=== PATIENT | male | born 1965 | race Native Hawaiian/Other Pacific Islander ===

== ENCOUNTER 2021-09-07 09:41 | Inpatient (IN) | payer OTHER ==
[~2021-09-07] VITALS: Ht 181.6 cm; Wt 150.9 kg
[2021-09-07 10:36] LABS: Basophils # (auto) 0 10 ^3/uL (0-0.2); Lymphocytes # (auto) 0.6 10 ^3/uL (0.4-5.4); Mean Corpuscular Volume 84.3 fL (80.0-100.0)
[2021-09-07 10:41] LABS: Basophils % (auto) 0.1 % (0.0-2.0); Eosinophils # (auto) 0.2 10 ^3/uL (0-0.8); Eosinophils % (auto) 1.4 % (0.0-7.0); Hematocrit 51.6 % (41.0-53.0); Hemoglobin 16.8 g/dL (13.5-17.5); Mean Corpuscular Hemoglobin 27.4 pg (28.0-32.0); Mean Corpuscular Hgb Conc. 32.5 g/dL (32.0-36.0); Monocytes # (auto) 0.1 10 ^3/uL (0-1.3); Monocytes % (auto) 0.5 % (0.0-12.0); Neutrophils # (auto) 11.3 10 ^3/uL (1.6-8.6); Nucleated Red Blood Cells % 0.2 %; Red Blood Cells 6.13 10^6/uL (4.5-5.90); White Blood Cell 12.1 10^3/uL (4.4-10.8)
[2021-09-07 10:55] LABS: Albumin 2.6 g/dL (3.4-5.0); Potassium 4.2 mmol/L (3.5-5.1)
[2021-09-07 11:01] LABS: BUN/Creatinine Ratio 15.6; Bilirubin, Total 0.9 mg/dL (0.2-1.0); Total Protein 7.9 g/dL (6.4-8.2)
[2021-09-07] MEDS ORDERED: methylPREDNISolone SOD SUCC 125 MG/2 ML VL IV ONE (11:15)
[2021-09-07] MEDS ORDERED: ACETAMINOPHEN 500 MG TAB PO ONE (12:43)
[2021-09-07] MEDS ORDERED: MORPHINE SULFATE INJECTION 2 MG/ML SYRG IV PRN ×3 (12:45→13:45)
[2021-09-07] MEDS ORDERED: AZITHROMYCIN 500MG/ 250ML 250 ML IV ONE (12:45)
[2021-09-07] MEDS ORDERED: APIXABAN 5 MG TAB PO ONE (12:45)
[2021-09-07] MEDS ORDERED: NITROGLYCERIN 0.4 MG SL TAB SL PRN ×2 (12:45→13:45)
[2021-09-07] MEDS ORDERED: cefTRIAXone 1GM/50ML D5W 50 ML IV ONE (12:45)
[2021-09-07] MEDS ORDERED: ACETAMINOPHEN 325 MG TAB PO ONE (12:45)
[2021-09-07] MEDS ORDERED: LORazepam 0.5 MG TAB PO PRN (13:45)
[2021-09-07] MEDS ORDERED: ACETAMINOPHEN 325 MG TAB PO PRN (13:45)
[2021-09-07] MEDS ORDERED: HYDROcodone-ACET 5/325MG TAB PO PRN (13:45)
[2021-09-07] MEDS ORDERED: ALUM & MAG HYDROX-SIMETH LIQ(MAALOX) 30 ML PO PRN (13:45)
[2021-09-07] MEDS ORDERED: METOCLOPRAMIDE HCL 5MG/ml INJ 2ml VIAL IV PRN (13:45)
[2021-09-07] MEDS ORDERED: DOCUSATE SOD 100 MG CAP PO PRN (13:45)
[2021-09-07] MEDS ORDERED: ACETAMINOPHEN 500 MG TAB PO PRN (13:45)
[2021-09-07] MEDS ORDERED: REMDESIVIR PER PHARMACY 0 ML IV SCH (13:45)
[2021-09-07] MEDS ORDERED: FUROSEMIDE 100 MG/10ML VIAL IV ONE (14:00)
[2021-09-07] MEDS ORDERED: hydrALAZINE HCL 20 MG/ML VL IV PRN (14:00)
[2021-09-07] MEDS ORDERED: FAMOTIDINE (10MG/ML) 2ML VL IV ONE (14:00)
[2021-09-07] MEDS ORDERED: guaiFENesin-CODEINE Liq 5 ML UD PO PRN (14:15)
[2021-09-07 14:47] LABS: Albumin 2.5 g/dL (3.4-5.0); Calcium 8.7 mg/dL (8.5-10.1); Magnesium 3.1 mg/dL (1.6-2.6); Potassium 4.4 mmol/L (3.5-5.1)
[2021-09-07 14:54] LABS: Cholesterol 172 mg/dL (< 200)
[2021-09-07 14:56] LABS: Bilirubin, Total 1.1 mg/dL (0.2-1.0); CRP High Sensitivity 5.22 mg/dL (< 0.3); Total Protein 7.5 g/dL (6.4-8.2)
[2021-09-07 14:57] LABS: HDL Cholesterol 33 mg/dL (40-59); LDL Cholesterol 120 mg/dL (< 100); Triglycerides 129 mg/dL (< 150)
[2021-09-07 15:09] LABS: Lactic Acid w/Reflex 2.1 mmol/L (0.4-2.0)
[2021-09-07 15:42] LABS: Thyroid Stimulating Hormone 1.25 uIU/mL (0.358-3.74)
[2021-09-07] MEDS: IVERMECTIN 3 MG TAB PO SCH (16:00)
[2021-09-07 17:32] LABS: Urine WBC None Seen /hpf (0 - 3)
[2021-09-07 17:49] LABS: Urine Bacteria NONE SEEN /hpf (None Seen); Urine Blood Negative /uL (Negative); Urine Specific Gravity 1.005 (1.001-1.035)
[2021-09-07 17:58] LABS: Alcohol, Urine < 3.0 mg/dL (0-10); Amphetamine Screen, Urine NEGATIVE (NEGATIVE); Barbiturate Scree,Urine NEGATIVE (NEGATIVE); Benzodiazephine Screen, Urine NEGATIVE (NEGATIVE); Cannabinoid Screen, Urine NEGATIVE (NEGATIVE); Cocaine Screen, Urine NEGATIVE (NEGATIVE); Opiate Scree,Urine NEGATIVE (NEGATIVE); Phencyclidine Screen, Urine NEGATIVE (NEGATIVE)
[2021-09-07] MEDS: FUROSEMIDE 40 MG/4 ML VIAL IV SCH (18:50)
[2021-09-07] MEDS: FAMOTIDINE (10MG/ML) 2ML VL IV SCH (22:55)
[2021-09-07] MEDS: APIXABAN 5 MG TAB PO SCH (22:55)
[2021-09-07] MEDS: ATORVASTATIN 20 MG TAB PO SCH (22:56)
[2021-09-07 23:40] VITALS: BP 118/75
[2021-09-08] MEDS: DOXYCYCLINE 100MG/250ML 250 ML IV SCH ×2 (00:24→09:52)
[2021-09-08 00:48] LABS: Basophils # (auto) 0 10 ^3/uL (0-0.2); Basophils % (auto) 0.5 % (0.0-2.0); Eosinophils # (auto) 0 10 ^3/uL (0-0.8); Eosinophils % (auto) 0.1 % (0.0-7.0); Hematocrit 50.1 % (41.0-53.0); Hemoglobin 16.5 g/dL (13.5-17.5); Lymphocytes # (auto) 0.5 10 ^3/uL (0.4-5.4); Lymphocytes % (auto) 4.9 % (10.0-50.0); Mean Corpuscular Hemoglobin 27.7 pg (28.0-32.0); Mean Corpuscular Hgb Conc. 32.9 g/dL (32.0-36.0); Monocytes # (auto) 0.2 10 ^3/uL (0-1.3); Monocytes % (auto) 2.6 % (0.0-12.0); Neutrophils # (auto) 8.7 10 ^3/uL (1.6-8.6); Neutrophils % (auto) 91.9 % (37.0-80.0); Nucleated Red Blood Cells % 0.1 %; Red Blood Cells 5.97 10^6/uL (4.5-5.90); Red Cell Distribution Width 14.2 % (11.8-14.3); White Blood Cell 9.4 10^3/uL (4.4-10.8)
[2021-09-08 05:15] VITALS: BP 128/84
[2021-09-08] MEDS: FUROSEMIDE 40 MG/4 ML VIAL IV SCH ×2 (05:49→18:18)
[2021-09-08] MEDS: BUDESONIDE (INHALATION) 180 MCG IH IN SCH ×2 (07:40→21:22)
[2021-09-08 08:23] LABS: Basophils # (auto) 0 10 ^3/uL (0-0.2); Basophils % (auto) 0.2 % (0.0-2.0); Eosinophils # (auto) 0 10 ^3/uL (0-0.8); Hematocrit 50.5 % (41.0-53.0); Hemoglobin 17.2 g/dL (13.5-17.5); Lymphocytes # (auto) 0.6 10 ^3/uL (0.4-5.4); Lymphocytes % (auto) 5.5 % (10.0-50.0); Mean Corpuscular Hemoglobin 28.5 pg (28.0-32.0); Mean Corpuscular Volume 83.6 fL (80.0-100.0); Monocytes # (auto) 0.5 10 ^3/uL (0-1.3); Monocytes % (auto) 4.6 % (0.0-12.0); Neutrophils # (auto) 9.3 10 ^3/uL (1.6-8.6); Neutrophils % (auto) 89.7 % (37.0-80.0); Nucleated Red Blood Cells % 0.3 %; Red Blood Cells 6.03 10^6/uL (4.5-5.90); Red Cell Distribution Width 14.1 % (11.8-14.3); White Blood Cell 10.4 10^3/uL (4.4-10.8)
[2021-09-08 08:40] LABS: INR 1.27 (0.9-1.15); Partial Thromboplastin Time 32.5 sec (23.6-33.0)
[2021-09-08 09:00] VITALS: BP 115/82
[2021-09-08 09:25] LABS: Albumin 2.7 g/dL (3.4-5.0); BUN/Creatinine Ratio 15.2; Bilirubin, Total 0.8 mg/dL (0.2-1.0); Calcium 9.2 mg/dL (8.5-10.1); Magnesium 3.6 mg/dL (1.6-2.6); Phosphorus 5.2 mg/dL (2.5-4.90); Total Protein 8.4 g/dL (6.4-8.2)
[2021-09-08] MEDS: ASPirin 81 mg TAB PO SCH (09:52)
[2021-09-08] MEDS: FAMOTIDINE (10MG/ML) 2ML VL IV SCH ×2 (09:52→21:57)
[2021-09-08] MEDS: DexAMETHasone SOD PHOS 10MG/1ML VIAL INJ IV SCH (09:52)
[2021-09-08] MEDS: CHOLECALCIFEROL (VITD3) 2,000 UNIT CAP/TAB PO SCH (09:53)
[2021-09-08] MEDS: ASCORBIC ACID 1,000 MG TAB PO SCH (09:53)
[2021-09-08] MEDS: IVERMECTIN 3 MG TAB PO SCH (09:53)
[2021-09-08] MEDS: APIXABAN 5 MG TAB PO SCH ×2 (09:53→21:57)
[2021-09-08] MEDS: ZINC SULFATE 220mg CAP or TAB PO SCH (09:53)
[2021-09-08] MEDS: ALBUTEROL SULF HFA 90MCG INH 200DOSE IN PRN (11:14)
[2021-09-08] MEDS ORDERED: REMDESIVIR 200 MG in NS 210ml LOADING DOSE ADULT IV ONE (12:00)
[2021-09-08 13:00] VITALS: BP 115/73
[2021-09-08 17:00] VITALS: BP 124/88
[2021-09-08] MEDS ORDERED: VANCOMYCIN PER PHARMACY 0 MG IV SCH (19:15)
[2021-09-08] MEDS ORDERED: PIPERACILLIN-TAZOB 3.375GM 100 ML IV ONE (19:15)
[2021-09-08 20:01] LABS: Magnesium 2.5 mg/dL (1.6-2.6); Phosphorus 4.9 mg/dL (2.5-4.90)
[2021-09-08] MEDS ORDERED: VANCOMYCIN 1GM/250ML 250 ML IV ONE (21:00)
[2021-09-08] MEDS: ATORVASTATIN 20 MG TAB PO SCH (21:57)
[2021-09-08 22:00] VITALS: BP 97/60
[2021-09-09] MEDS: PIPERACILLIN-TAZOB 3.375GM 100 ML IV SCH ×5 (00:14→23:30)
[2021-09-09 05:17] VITALS: BP 116/68
[2021-09-09] MEDS: FUROSEMIDE 40 MG/4 ML VIAL IV SCH ×2 (06:52→17:27)
[2021-09-09 07:27] LABS: Basophils # (auto) 0 10 ^3/uL (0-0.2); Basophils % (auto) 0.2 % (0.0-2.0); Eosinophils # (auto) 0.1 10 ^3/uL (0-0.8); Eosinophils % (auto) 0.6 % (0.0-7.0); Hematocrit 50.3 % (41.0-53.0); Hemoglobin 16.7 g/dL (13.5-17.5); Lymphocytes # (auto) 0.5 10 ^3/uL (0.4-5.4); Lymphocytes % (auto) 4.6 % (10.0-50.0); Mean Corpuscular Hgb Conc. 33.1 g/dL (32.0-36.0); Mean Corpuscular Volume 84.6 fL (80.0-100.0); Monocytes # (auto) 0.1 10 ^3/uL (0-1.3); Monocytes % (auto) 0.8 % (0.0-12.0); Neutrophils # (auto) 9.9 10 ^3/uL (1.6-8.6); Neutrophils % (auto) 93.8 % (37.0-80.0); Nucleated Red Blood Cells % 0.3 %; Red Blood Cells 5.95 10^6/uL (4.5-5.90); Red Cell Distribution Width 13.8 % (11.8-14.3); White Blood Cell 10.6 10^3/uL (4.4-10.8)
[2021-09-09 07:51] LABS: Albumin 2.5 g/dL (3.4-5.0); BUN/Creatinine Ratio 22.2; Total Protein 7.6 g/dL (6.4-8.2)
[2021-09-09 07:57] LABS: INR 1.2 (0.9-1.15); Partial Thromboplastin Time 27.6 sec (23.6-33.0)
[2021-09-09 09:00] VITALS: BP 108/81
[2021-09-09] MEDS: FAMOTIDINE (10MG/ML) 2ML VL IV SCH ×2 (09:30→22:14)
[2021-09-09] MEDS: DexAMETHasone SOD PHOS 10MG/1ML VIAL INJ IV SCH (09:30)
[2021-09-09] MEDS: IVERMECTIN 3 MG TAB PO SCH (09:31)
[2021-09-09] MEDS: APIXABAN 5 MG TAB PO SCH ×2 (09:31→22:14)
[2021-09-09] MEDS: ASCORBIC ACID 1,000 MG TAB PO SCH (09:31)
[2021-09-09] MEDS: ASPirin 81 mg TAB PO SCH (09:31)
[2021-09-09] MEDS: ZINC SULFATE 220mg CAP or TAB PO SCH (09:31)
[2021-09-09] MEDS: CHOLECALCIFEROL (VITD3) 2,000 UNIT CAP/TAB PO SCH (09:31)
[2021-09-09] MEDS: BUDESONIDE (INHALATION) 180 MCG IH IN SCH ×2 (09:52→21:03)
[2021-09-09 13:00] VITALS: BP 104/60
[2021-09-09] MEDS: REMDESIVIR 100mg 100 MG in SODIUM CHL 0.9% 230 ML IV SCH (15:00)
[2021-09-09] MEDS: ALBUTEROL SULF HFA 90MCG INH 200DOSE IN PRN (15:08)
[2021-09-09 17:44] VITALS: BP 130/66
[2021-09-09] MEDS ORDERED: VANCOMYCIN 1GM/250ML 250 ML IV SCH (20:00)
[2021-09-09 22:00] VITALS: BP 91/48
[2021-09-09] MEDS: ATORVASTATIN 20 MG TAB PO SCH (22:17)
[2021-09-10 05:00] VITALS: BP 119/67
[2021-09-10] MEDS: PIPERACILLIN-TAZOB 3.375GM 100 ML IV SCH (05:42)
[2021-09-10] MEDS: FUROSEMIDE 40 MG/4 ML VIAL IV SCH ×2 (05:42→18:15)
[2021-09-10] MEDS: BUDESONIDE (INHALATION) 180 MCG IH IN SCH ×2 (06:44→19:26)
[2021-09-10] MEDS: ALBUTEROL SULF HFA 90MCG INH 200DOSE IN PRN ×2 (06:44→21:02)
[2021-09-10 07:48] LABS: INR 1.28 (0.9-1.15); Partial Thromboplastin Time 29.3 sec (23.6-33.0)
[2021-09-10 08:08] LABS: Potassium 3.8 mmol/L (3.5-5.1)
[2021-09-10 08:15] LABS: Basophils # (auto) 0 10 ^3/uL (0-0.2); Basophils % (auto) 0.1 % (0.0-2.0); Eosinophils # (auto) 0.1 10 ^3/uL (0-0.8); Hematocrit 50.3 % (41.0-53.0); Hemoglobin 16.8 g/dL (13.5-17.5); Lymphocytes # (auto) 0.8 10 ^3/uL (0.4-5.4); Lymphocytes % (auto) 6.7 % (10.0-50.0); Mean Corpuscular Hgb Conc. 33.3 g/dL (32.0-36.0); Mean Corpuscular Volume 84.1 fL (80.0-100.0); Monocytes # (auto) 0.3 10 ^3/uL (0-1.3); Monocytes % (auto) 2.9 % (0.0-12.0); Neutrophils # (auto) 10.6 10 ^3/uL (1.6-8.6); Neutrophils % (auto) 89.3 % (37.0-80.0); Nucleated Red Blood Cells % 0.1 %; Red Blood Cells 5.98 10^6/uL (4.5-5.90); Red Cell Distribution Width 13.8 % (11.8-14.3); White Blood Cell 11.8 10^3/uL (4.4-10.8)
[2021-09-10 08:17] LABS: Albumin 2.5 g/dL (3.4-5.0); BUN/Creatinine Ratio 20.4; Calcium 8.8 mg/dL (8.5-10.1); Magnesium 3.5 mg/dL (1.6-2.6); Phosphorus 4.1 mg/dL (2.5-4.90); Total Protein 7.8 g/dL (6.4-8.2)
[2021-09-10] MEDS: ZINC SULFATE 220mg CAP or TAB PO SCH (08:28)
[2021-09-10] MEDS: ASPirin 81 mg TAB PO SCH (08:28)
[2021-09-10] MEDS: ASCORBIC ACID 1,000 MG TAB PO SCH (08:29)
[2021-09-10] MEDS: FAMOTIDINE (10MG/ML) 2ML VL IV SCH ×2 (08:29→21:24)
[2021-09-10] MEDS: APIXABAN 5 MG TAB PO SCH ×2 (08:29→21:24)
[2021-09-10] MEDS: CHOLECALCIFEROL (VITD3) 2,000 UNIT CAP/TAB PO SCH (08:29)
[2021-09-10] MEDS: IVERMECTIN 3 MG TAB PO SCH (08:29)
[2021-09-10] MEDS: DexAMETHasone SOD PHOS 10MG/1ML VIAL INJ IV SCH (08:29)
[2021-09-10 08:36] VITALS: BP 112/68
[2021-09-10] MEDS: CEFTRIAXONE SODIUM 2 GM in D5W 5% 50 ML IV SCH (10:00)
[2021-09-10 12:34] VITALS: BP 113/66
[2021-09-10 14:15] LABS: Hepatitis A Ab IgM Negative; Hepatitis B Core IgM Negative
[2021-09-10 14:16] LABS: Hepatitis C Antibody Negative (Negative)
[2021-09-10] MEDS: REMDESIVIR 100mg 100 MG in SODIUM CHL 0.9% 230 ML IV SCH (15:55)
[2021-09-10 16:55] VITALS: BP 113/76
[2021-09-10] MEDS: ATORVASTATIN 20 MG TAB PO SCH (21:24)
[2021-09-10] MEDS: CLINDAMYCIN 600MG IV 50 ML IV SCH (21:24)
[2021-09-10 22:00] VITALS: BP 124/84
[2021-09-11] MEDS: CLINDAMYCIN 600MG IV 50 ML IV SCH ×3 (05:15→21:43)
[2021-09-11] MEDS: BUDESONIDE (INHALATION) 180 MCG IH IN SCH ×2 (05:51→19:56)
[2021-09-11] MEDS: ALBUTEROL SULF HFA 90MCG INH 200DOSE IN PRN ×2 (05:51→19:56)
[2021-09-11 07:01] LABS: Basophils # (auto) 0 10 ^3/uL (0-0.2); Basophils % (auto) 0.3 % (0.0-2.0); Eosinophils # (auto) 0.1 10 ^3/uL (0-0.8); Hematocrit 48.2 % (41.0-53.0); Lymphocytes # (auto) 0.8 10 ^3/uL (0.4-5.4); Lymphocytes % (auto) 6.8 % (10.0-50.0); Mean Corpuscular Hemoglobin 27.8 pg (28.0-32.0); Mean Corpuscular Hgb Conc. 33.2 g/dL (32.0-36.0); Mean Corpuscular Volume 83.7 fL (80.0-100.0); Monocytes # (auto) 0.7 10 ^3/uL (0-1.3); Monocytes % (auto) 5.9 % (0.0-12.0); Neutrophils # (auto) 10.1 10 ^3/uL (1.6-8.6); Red Blood Cells 5.75 10^6/uL (4.5-5.90); Red Cell Distribution Width 14.3 % (11.8-14.3); White Blood Cell 11.8 10^3/uL (4.4-10.8)
[2021-09-11 07:35] LABS: Potassium 3.7 mmol/L (3.5-5.1)
[2021-09-11 08:04] LABS: Albumin 2.5 g/dL (3.4-5.0); BUN/Creatinine Ratio 25.3; Bilirubin, Total 0.6 mg/dL (0.2-1.0); Total Protein 7.5 g/dL (6.4-8.2)
[2021-09-11 09:00] VITALS: BP 113/65
[2021-09-11] MEDS: FAMOTIDINE (10MG/ML) 2ML VL IV SCH (09:45)
[2021-09-11] MEDS: CEFTRIAXONE SODIUM 2 GM in D5W 5% 50 ML IV SCH (09:45)
[2021-09-11] MEDS: ZINC SULFATE 220mg CAP or TAB PO SCH (09:45)
[2021-09-11] MEDS: ASPirin 81 mg TAB PO SCH (09:45)
[2021-09-11] MEDS: DexAMETHasone SOD PHOS 10MG/1ML VIAL INJ IV SCH (09:45)
[2021-09-11] MEDS: ASCORBIC ACID 1,000 MG TAB PO SCH (09:46)
[2021-09-11] MEDS: CHOLECALCIFEROL (VITD3) 2,000 UNIT CAP/TAB PO SCH (09:46)
[2021-09-11] MEDS: IVERMECTIN 3 MG TAB PO SCH (09:46)
[2021-09-11] MEDS: APIXABAN 5 MG TAB PO SCH ×2 (09:46→21:44)
[2021-09-11 13:00] VITALS: BP 129/79
[2021-09-11] MEDS: REMDESIVIR 100mg 100 MG in SODIUM CHL 0.9% 230 ML IV SCH (16:03)
[2021-09-11 17:00] VITALS: BP 155/90
[2021-09-11 20:00] VITALS: BP 119/78
[2021-09-11 21:00] VITALS: BP 119/78
[2021-09-11] MEDS: ATORVASTATIN 20 MG TAB PO SCH (21:44)
[2021-09-12] MEDS: CLINDAMYCIN 600MG IV 50 ML IV SCH ×3 (05:12→21:23)
[2021-09-12 06:38] LABS: Potassium 4.6 mmol/L (3.5-5.1)
[2021-09-12 06:45] LABS: Albumin 2.4 g/dL (3.4-5.0); BUN/Creatinine Ratio 23.6; Calcium 8.9 mg/dL (8.5-10.1)
[2021-09-12 06:47] LABS: Bilirubin, Total 0.6 mg/dL (0.2-1.0); Total Protein 6.9 g/dL (6.4-8.2)
[2021-09-12] MEDS: ALBUTEROL SULF HFA 90MCG INH 200DOSE IN PRN ×2 (07:05→21:45)
[2021-09-12] MEDS: BUDESONIDE (INHALATION) 180 MCG IH IN SCH ×2 (07:06→21:45)
[2021-09-12 09:00] VITALS: BP 112/76
[2021-09-12] MEDS: CEFTRIAXONE SODIUM 2 GM in D5W 5% 50 ML IV SCH (09:16)
[2021-09-12] MEDS: DexAMETHasone SOD PHOS 10MG/1ML VIAL INJ IV SCH (09:16)
[2021-09-12] MEDS: ASPirin 81 mg TAB PO SCH (09:17)
[2021-09-12] MEDS: ZINC SULFATE 220mg CAP or TAB PO SCH (09:17)
[2021-09-12] MEDS: ASCORBIC ACID 1,000 MG TAB PO SCH (09:17)
[2021-09-12] MEDS: APIXABAN 5 MG TAB PO SCH ×2 (09:17→21:23)
[2021-09-12] MEDS: CHOLECALCIFEROL (VITD3) 2,000 UNIT CAP/TAB PO SCH (09:18)
[2021-09-12 13:00] VITALS: BP 104/74
[2021-09-12] MEDS: REMDESIVIR 100mg 100 MG in SODIUM CHL 0.9% 230 ML IV SCH (14:45)
[2021-09-12 17:00] VITALS: BP 128/82
[2021-09-12] MEDS: ATORVASTATIN 20 MG TAB PO SCH (21:24)
[2021-09-12 22:00] VITALS: BP 121/81
[2021-09-13 05:00] VITALS: BP 109/67
[2021-09-13] MEDS: CLINDAMYCIN 600MG IV 50 ML IV SCH ×2 (05:41→13:45)
[2021-09-13] MEDS: ALBUTEROL SULF HFA 90MCG INH 200DOSE IN PRN ×2 (05:53→21:12)
[2021-09-13] MEDS: BUDESONIDE (INHALATION) 180 MCG IH IN SCH ×2 (05:53→19:34)
[2021-09-13 07:40] LABS: Potassium 4.6 mmol/L (3.5-5.1)
[2021-09-13 07:50] VITALS: BP 105/88
[2021-09-13 08:04] LABS: Albumin 2.5 g/dL (3.4-5.0); BUN/Creatinine Ratio 24.8; Calcium 9.3 mg/dL (8.5-10.1)
[2021-09-13 08:07] LABS: Bilirubin, Total 0.6 mg/dL (0.2-1.0); Total Protein 7.9 g/dL (6.4-8.2)
[2021-09-13] MEDS: FLORASTOR (S. BOULARDII) 250 MG CAP PO SCH (09:33)
[2021-09-13] MEDS: DexAMETHasone SOD PHOS 10MG/1ML VIAL INJ IV SCH (09:33)
[2021-09-13] MEDS: ASPirin 81 mg TAB PO SCH (09:34)
[2021-09-13] MEDS: ASCORBIC ACID 1,000 MG TAB PO SCH (09:34)
[2021-09-13] MEDS: ZINC SULFATE 220mg CAP or TAB PO SCH (09:34)
[2021-09-13] MEDS: APIXABAN 5 MG TAB PO SCH ×2 (09:34→21:55)
[2021-09-13] MEDS: CHOLECALCIFEROL (VITD3) 2,000 UNIT CAP/TAB PO SCH (09:34)
[2021-09-13] MEDS: CEFTRIAXONE SODIUM 2 GM in D5W 5% 50 ML IV SCH (09:56)
[2021-09-13 13:00] VITALS: BP 114/64
[2021-09-13 16:35] VITALS: BP 133/84
[2021-09-13] MEDS: ATORVASTATIN 20 MG TAB PO SCH (21:55)
[2021-09-13 22:00] VITALS: BP 114/69
[2021-09-13] MEDS: AMOXICILLIN/CLAVUL 875 MG TAB PO SCH (22:19)
[2021-09-14 05:00] VITALS: BP 122/79
[2021-09-14] MEDS: ALBUTEROL SULF HFA 90MCG INH 200DOSE IN PRN ×2 (06:54→21:49)
[2021-09-14] MEDS: BUDESONIDE (INHALATION) 180 MCG IH IN SCH ×2 (06:54→21:49)
[2021-09-14 09:00] VITALS: BP 102/72
[2021-09-14] MEDS: FLORASTOR (S. BOULARDII) 250 MG CAP PO SCH (10:08)
[2021-09-14] MEDS: ASCORBIC ACID 1,000 MG TAB PO SCH (10:08)
[2021-09-14] MEDS: AMOXICILLIN/CLAVUL 875 MG TAB PO SCH ×2 (10:09→22:24)
[2021-09-14] MEDS: APIXABAN 5 MG TAB PO SCH ×2 (10:09→22:24)
[2021-09-14] MEDS: CHOLECALCIFEROL (VITD3) 2,000 UNIT CAP/TAB PO SCH (10:10)
[2021-09-14] MEDS: ZINC SULFATE 220mg CAP or TAB PO SCH (10:10)
[2021-09-14] MEDS: DexAMETHasone SOD PHOS 10MG/1ML VIAL INJ IV SCH (10:10)
[2021-09-14] MEDS: ASPirin 81 mg TAB PO SCH (10:10)
[2021-09-14 13:00] VITALS: BP 107/78
[2021-09-14] MEDS ORDERED: FLUTICASONE PROP NASAL SPR 0.05 % (50MCG) 16GM EACHNOSTRI ONE (15:00)
[2021-09-14] MEDS: FLUTICASONE PROP NASAL SPR 0.05 % (50MCG) 16GM EACHNOSTRI SCH ×2 (16:12→22:24)
[2021-09-14 17:01] VITALS: BP 112/68
[2021-09-14 22:00] VITALS: BP 140/62
[2021-09-14] MEDS: ATORVASTATIN 20 MG TAB PO SCH (22:24)
[2021-09-15 05:00] VITALS: BP 123/80
[2021-09-15] MEDS: BUDESONIDE (INHALATION) 180 MCG IH IN SCH ×2 (06:03→19:56)
[2021-09-15] MEDS: ALBUTEROL SULF HFA 90MCG INH 200DOSE IN PRN ×2 (06:03→19:56)
[2021-09-15 07:18] LABS: Potassium 4.5 mmol/L (3.5-5.1)
[2021-09-15 07:22] LABS: Albumin 2.5 g/dL (3.4-5.0); BUN/Creatinine Ratio 24.6
[2021-09-15 07:24] LABS: Bilirubin, Total 0.7 mg/dL (0.2-1.0); Total Protein 7.5 g/dL (6.4-8.2)
[2021-09-15 07:27] LABS: Hematocrit 49.4 % (41.0-53.0); Hemoglobin 16.5 g/dL (13.5-17.5); Mean Corpuscular Hemoglobin 28.3 pg (28.0-32.0); Mean Corpuscular Hgb Conc. 33.3 g/dL (32.0-36.0); Mean Corpuscular Volume 85.1 fL (80.0-100.0); Red Blood Cells 5.81 10^6/uL (4.5-5.90); Red Cell Distribution Width 14.1 % (11.8-14.3)
[2021-09-15 08:05] LABS: Basophils % (manual) 0 (0.0-2.0); Blast Cells 0; Metamyelocytes % 0; Promyelocytes % 0; Reactive Lymphocytes 0
[2021-09-15 09:00] VITALS: BP 122/74
[2021-09-15] MEDS: FLUTICASONE PROP NASAL SPR 0.05 % (50MCG) 16GM EACHNOSTRI SCH ×2 (09:05→21:09)
[2021-09-15] MEDS: ASPirin 81 mg TAB PO SCH (09:06)
[2021-09-15] MEDS: DexAMETHasone SOD PHOS 10MG/1ML VIAL INJ IV SCH (09:06)
[2021-09-15] MEDS: ZINC SULFATE 220mg CAP or TAB PO SCH (09:06)
[2021-09-15] MEDS: APIXABAN 5 MG TAB PO SCH ×2 (09:06→21:09)
[2021-09-15] MEDS: FLORASTOR (S. BOULARDII) 250 MG CAP PO SCH (09:06)
[2021-09-15] MEDS: AMOXICILLIN/CLAVUL 875 MG TAB PO SCH ×2 (09:06→21:09)
[2021-09-15] MEDS: CHOLECALCIFEROL (VITD3) 2,000 UNIT CAP/TAB PO SCH (09:07)
[2021-09-15] MEDS: ASCORBIC ACID 1,000 MG TAB PO SCH (09:07)
[2021-09-15 11:31] LABS: Band Neutrophils % (manual) 1; Eosinophils % (manual) 1 (0-7); Lymphocytes % (manual) 7 (10.0-50.0); Monocytes % (manual) 4 (0-12); Myelocytes % 1
[2021-09-15 13:00] VITALS: BP 130/82
[2021-09-15 17:00] VITALS: BP 127/81
[2021-09-15] MEDS: ATORVASTATIN 20 MG TAB PO SCH (21:09)
[2021-09-15 22:00] VITALS: BP 121/83
[2021-09-16 05:00] VITALS: BP 138/97
[2021-09-16] MEDS: ALBUTEROL SULF HFA 90MCG INH 200DOSE IN PRN ×2 (07:26→21:07)
[2021-09-16] MEDS: BUDESONIDE (INHALATION) 180 MCG IH IN SCH ×2 (07:26→21:07)
[2021-09-16 08:04] LABS: Eosinophils # (auto) 0.1 10 ^3/uL (0-0.8); Eosinophils % (auto) 0.6 % (0.0-7.0); Lymphocytes # (auto) 1.7 10 ^3/uL (0.4-5.4); Mean Corpuscular Hemoglobin 27.9 pg (28.0-32.0); Mean Corpuscular Volume 84.7 fL (80.0-100.0); Monocytes # (auto) 1.1 10 ^3/uL (0-1.3); Nucleated Red Blood Cells % 0.1 %
[2021-09-16 08:05] LABS: Basophils # (auto) 0 10 ^3/uL (0-0.2); Basophils % (auto) 0.3 % (0.0-2.0); Hematocrit 50.7 % (41.0-53.0); Hemoglobin 16.7 g/dL (13.5-17.5); Lymphocytes % (auto) 12.1 % (10.0-50.0); Monocytes % (auto) 7.7 % (0.0-12.0); Neutrophils # (auto) 11.3 10 ^3/uL (1.6-8.6); Neutrophils % (auto) 79.3 % (37.0-80.0); Red Blood Cells 5.99 10^6/uL (4.5-5.90); Red Cell Distribution Width 14.3 % (11.8-14.3); White Blood Cell 14.2 10^3/uL (4.4-10.8)
[2021-09-16 08:12] LABS: Potassium 4.2 mmol/L (3.5-5.1)
[2021-09-16 08:21] LABS: Albumin 2.6 g/dL (3.4-5.0); BUN/Creatinine Ratio 23.1; Bilirubin, Total 0.6 mg/dL (0.2-1.0); Calcium 9.1 mg/dL (8.5-10.1); Total Protein 7.3 g/dL (6.4-8.2)
[2021-09-16] MEDS: DexAMETHasone SOD PHOS 10MG/1ML VIAL INJ IV SCH (08:45)
[2021-09-16] MEDS: ASPirin 81 mg TAB PO SCH (08:45)
[2021-09-16] MEDS: FLUTICASONE PROP NASAL SPR 0.05 % (50MCG) 16GM EACHNOSTRI SCH ×2 (08:45→21:56)
[2021-09-16] MEDS: FLORASTOR (S. BOULARDII) 250 MG CAP PO SCH (08:46)
[2021-09-16] MEDS: AMOXICILLIN/CLAVUL 875 MG TAB PO SCH ×2 (08:46→21:55)
[2021-09-16] MEDS: APIXABAN 5 MG TAB PO SCH ×2 (08:46→21:55)
[2021-09-16] MEDS: CHOLECALCIFEROL (VITD3) 2,000 UNIT CAP/TAB PO SCH (08:46)
[2021-09-16] MEDS: ZINC SULFATE 220mg CAP or TAB PO SCH (08:46)
[2021-09-16] MEDS: ASCORBIC ACID 1,000 MG TAB PO SCH (08:46)
[2021-09-16 09:45] VITALS: BP 132/81
[2021-09-16 13:00] VITALS: BP 129/79
[2021-09-16 16:18] VITALS: BP 116/75
[2021-09-16] MEDS: ATORVASTATIN 20 MG TAB PO SCH (21:56)
[2021-09-16 22:00] VITALS: BP 116/64
[2021-09-17 05:00] VITALS: BP 119/68
[2021-09-17 07:08] LABS: Basophils # (auto) 0.1 10 ^3/uL (0-0.2); Basophils % (auto) 0.4 % (0.0-2.0); Eosinophils # (auto) 0.1 10 ^3/uL (0-0.8); Eosinophils % (auto) 0.4 % (0.0-7.0); Hematocrit 49.1 % (41.0-53.0); Hemoglobin 16.4 g/dL (13.5-17.5); Lymphocytes # (auto) 1.5 10 ^3/uL (0.4-5.4); Lymphocytes % (auto) 10.4 % (10.0-50.0); Mean Corpuscular Hemoglobin 28.4 pg (28.0-32.0); Mean Corpuscular Hgb Conc. 33.5 g/dL (32.0-36.0); Mean Corpuscular Volume 84.8 fL (80.0-100.0); Monocytes % (auto) 7.2 % (0.0-12.0); Neutrophils # (auto) 11.8 10 ^3/uL (1.6-8.6); Neutrophils % (auto) 81.6 % (37.0-80.0); Nucleated Red Blood Cells % 0.1 %; Red Blood Cells 5.79 10^6/uL (4.5-5.90); Red Cell Distribution Width 14.1 % (11.8-14.3); White Blood Cell 14.5 10^3/uL (4.4-10.8)
[2021-09-17 07:13] LABS: Potassium 4.1 mmol/L (3.5-5.1)
[2021-09-17 07:20] LABS: Albumin 2.6 g/dL (3.4-5.0); BUN/Creatinine Ratio 24.3; Bilirubin, Total 0.6 mg/dL (0.2-1.0); Calcium 8.6 mg/dL (8.5-10.1); Total Protein 7.3 g/dL (6.4-8.2)
[2021-09-17 08:50] VITALS: BP 113/73
[2021-09-17] MEDS: DexAMETHasone SOD PHOS 10MG/1ML VIAL INJ IV SCH (09:49)
[2021-09-17] MEDS: FLUTICASONE PROP NASAL SPR 0.05 % (50MCG) 16GM EACHNOSTRI SCH (09:49)
[2021-09-17] MEDS: ASPirin 81 mg TAB PO SCH (09:49)
[2021-09-17] MEDS: AMOXICILLIN/CLAVUL 875 MG TAB PO SCH (09:50)
[2021-09-17] MEDS: APIXABAN 5 MG TAB PO SCH (09:50)
[2021-09-17] MEDS: ZINC SULFATE 220mg CAP or TAB PO SCH (09:50)
[2021-09-17] MEDS: ASCORBIC ACID 1,000 MG TAB PO SCH (09:51)
[2021-09-17] MEDS: CHOLECALCIFEROL (VITD3) 2,000 UNIT CAP/TAB PO SCH (09:51)
[2021-09-17] MEDS: FLORASTOR (S. BOULARDII) 250 MG CAP PO SCH (09:51)
[2021-09-17 13:00] VITALS: BP 122/84
[2021-09-17] MEDS ORDERED: CHOL1CAP47 PO (14:29)
[2021-09-17] MEDS ORDERED: RIVA10TA PO (14:29)
[2021-09-17] MEDS ORDERED: ALBUAER3 IN (14:29)
[2021-09-17] MEDS ORDERED: ZINC220T6 PO (14:29)
[2021-09-17] MEDS ORDERED: ASCO10003 PO (14:29)
[2021-09-17] MEDS ORDERED: AMOX-277 PO (14:41)
[2021-09-17 16:27] VITALS: BP 122/84
[2021-09-17 17:47] VITALS: BP 131/88
== END 2021-09-17 18:03 | disposition home or self-care (01) | DRG 177 ==
LOC: ER 09:41 → TELE 12:44 → TELE-WESTW 23:35
PROVIDERS: ADMIT Hospitalist; ATTEND Internal Medicine
PROC: XW033E5 Introduction of Remdesivir Anti-infective into Peripheral Vein, Percutaneous Approach, New Technology Group 5 (ICD-10-PCS; 2021-09-07)
PROC: B54NZZA Ultrasonography of Left Upper Extremity Veins, Guidance (ICD-10-PCS; principal; 2021-09-10)
PROC: 05HA33Z Insertion of Infusion Device into Left Brachial Vein, Percutaneous Approach (ICD-10-PCS; 2021-09-10)
DX: U07.1 COVID-19 (principal); J12.82 Pneumonia due to coronavirus disease 2019; J96.01 Acute respiratory failure with hypoxia; N17.0 Acute kidney failure with tubular necrosis; D68.59 Other primary thrombophilia; R78.81 Bacteremia; Z68.42 Body mass index [BMI] 45.0-49.9, adult; J98.11 Atelectasis; E66.01 Morbid (severe) obesity due to excess calories; E78.5 Hyperlipidemia, unspecified; E88.09 Other disorders of plasma-protein metabolism, not elsewhere classified; E88.81 Metabolic syndrome and other insulin resistance; N18.31 Chronic kidney disease, stage 3a; B95.8 Unspecified staphylococcus as the cause of diseases classified elsewhere; I12.9 Hypertensive chronic kidney disease with stage 1 through stage 4 chronic kidney disease, or unspecified chronic kidney disease; D89.839 Cytokine release syndrome, grade unspecified; R53.81 Other malaise; R74.01 Elevation of levels of liver transaminase levels
CPT/HCPCS: 36415; 36600; 71045; 76700; 80053; 80061; 80074; 80307; 81001; 82306; 82728; 82805; 83036; 83605; 83615; 83735; 83880; 83970; 84100; 84443; 84484; 84550; 85007; 85025; 85027; 85379; 85610; 85730; 86141; 87040; 87077; 87186; 87426; 93005; 93306; 93970; 94640; 96365; 96368; 96375; 99291; G0378; J0696; J1100; J2543; J3490; J7060

== ENCOUNTER 2022-04-24 21:26 | Emergency (ER) | payer OTHER ==
[~2022-04-24] VITALS: Ht 180.3 cm; Wt 145.0 kg
[~2022-04-24 21:26] MED LIST: ALBUAER3 IN; AMOX-277 PO; ASCO10003 PO; CHOL1CAP47 PO; RIVA10TA PO; ZINC220T6 PO
[2022-04-24 23:32] LABS: Urine Bacteria NONE SEEN /hpf (None Seen); Urine Blood 3+ /uL (Negative); Urine WBC 2763 /hpf (0 - 3); Urine WBC Clumps PRESENT /hpf (None Seen)
[2022-04-24 23:33] LABS: Urine Specific Gravity 1.024 (1.001-1.035)
[2022-04-24 23:42] LABS: Albumin 3.8 g/dL (3.4-5.0); BUN/Creatinine Ratio 11.1; Potassium 4.4 mmol/L (3.5-5.1)
[2022-04-24 23:44] LABS: Bilirubin, Total 0.9 mg/dL (0.2-1.0); Total Protein 8.2 g/dL (6.4-8.2)
[2022-04-24 23:49] LABS: Basophils # (auto) 0.1 10 ^3/uL (0-0.2); Basophils % (auto) 0.5 % (0.0-2.0); Eosinophils # (auto) 0.1 10 ^3/uL (0-0.8)
[2022-04-24 23:50] LABS: Eosinophils % (auto) 0.6 % (0.0-7.0); Hematocrit 54.9 % (41.0-53.0); Lymphocytes # (auto) 2.4 10 ^3/uL (0.4-5.4); Lymphocytes % (auto) 11.3 % (10.0-50.0); Mean Corpuscular Hemoglobin 27.6 pg (28.0-32.0); Mean Corpuscular Hgb Conc. 32.8 g/dL (32.0-36.0); Mean Corpuscular Volume 84.3 fL (80.0-100.0); Monocytes # (auto) 1.6 10 ^3/uL (0-1.3); Monocytes % (auto) 7.4 % (0.0-12.0); Neutrophils # (auto) 17.2 10 ^3/uL (1.6-8.6); Neutrophils % (auto) 80.2 % (37.0-80.0); Nucleated Red Blood Cells % 0.2 %; Red Blood Cells 6.51 10^6/uL (4.5-5.90); Red Cell Distribution Width 14.4 % (11.8-14.3); White Blood Cell 21.5 10^3/uL (4.4-10.8)
[2022-04-25 00:05] LABS: INR 0.97 (0.9-1.15); Partial Thromboplastin Time 29.5 sec (24.6-33.4)
[2022-04-25] MEDS ORDERED: ACETAMINOPHEN 325 MG TAB PO ONE (03:00)
[2022-04-25] MEDS ORDERED: SODIUM CHLORIDE 0.9% 1,000 ML IV ONE (03:15)
[2022-04-25 06:35] VITALS: BP 103/58
== END 2022-04-25 06:36 | disposition home or self-care (01) ==
LOC: ER 21:26
DX: K42.9 Umbilical hernia without obstruction or gangrene (principal); R31.9 Hematuria, unspecified; Z88.1 Allergy status to other antibiotic agents
CPT/HCPCS: 36415; 74176; 80053; 81001; 85025; 85610; 85730; 99285; J7030

== ENCOUNTER 2022-04-27 20:47 | Emergency (ER) | payer OTHER ==
[~2022-04-27] VITALS: Ht 180.3 cm; Wt 150.0 kg
[2022-04-27 21:24] VITALS: BP 117/67
[2022-04-28] MEDS ORDERED: CEPH-510 PO (02:38)
== END 2022-04-28 02:57 | disposition home or self-care (01) ==
LOC: ER 20:47
DX: N39.0 Urinary tract infection, site not specified (principal); R33.9 Retention of urine, unspecified; I10 Essential (primary) hypertension; Z87.442 Personal history of urinary calculi

== ENCOUNTER 2023-12-23 08:03 | Emergency (ER) | payer OTHER ==
[~2023-12-23] VITALS: Ht 180.3 cm; Wt 163.7 kg
[~2023-12-23 08:03] MED LIST changes: -AMOX-277 PO; +AMOX875T4 PO; +CEPH-510 PO
[2023-12-23] MEDS ORDERED: MELO7.5T7 PO (09:19)
[2023-12-23 09:24] VITALS: BP 144/91; PULSE 68; RESP 16; TEMP 97.3; O2SAT 94
== END 2023-12-23 09:45 | disposition home or self-care (01) ==
LOC: ER 08:03
DX: M19.011 Primary osteoarthritis, right shoulder (principal); Z87.442 Personal history of urinary calculi; Z79.899 Other long term (current) drug therapy
CPT/HCPCS: 73030

== ENCOUNTER 2024-09-05 08:45 | Inpatient (IN) | payer OTHER ==
[~2024-09-05] VITALS: Ht 175.3 cm; Wt 165.1 kg
[~2024-09-05 08:45] MED LIST changes: +CHOL500023 PO; +MELO7.5T7 PO; +METH-1181 PO
[2024-09-05 09:23] LABS: Basophils # (auto) 0 10 ^3/uL (0-0.2); Monocytes # (auto) 0.9 10 ^3/uL (0-1.3)
--- NOTE | 2024-09-05 09:24 | DVH ---
CHEST RADIOGRAPH Indication: cp Technique: Single frontal view of the chest was obtained COMPARISON: CHEST PORTABLE on DOS: 09/11/21 FINDINGS: Lines and Tubes: None Lungs: Low lung volumes with suggestion of mild superimposed hazy /interstitial opacities. Pleura: No effusion. No pneumothorax. Cardiomediastinal contours: Mild stable enlargement of the cardiac silhouette. Bones: Unremarkable IMPRESSION: Bronchovascular crowding with possible mild superimposed edema/infiltrates. There were significantly worse airspace opacities on the comparison chest x-ray from 09/11/2021.
[2024-09-05 09:27] LABS: Basophils % (auto) 0.6 % (0.0-2.0); Eosinophils # (auto) 0.3 10 ^3/uL (0-0.8); Eosinophils % (auto) 3.5 % (0.0-7.0); Hemoglobin 19.8 g/dL (13.5-17.5); Lymphocytes # (auto) 1.1 10 ^3/uL (0.4-5.4); Lymphocytes % (auto) 15.5 % (10.0-50.0); Mean Corpuscular Hgb Conc. 32.9 g/dL (32.0-36.0); Monocytes % (auto) 12.1 % (0.0-12.0); Neutrophils % (auto) 68.3 % (37.0-80.0); Nucleated Red Blood Cells % 0.9 %; Platelet Count (auto) 196 10^3/uL (140-450); Red Blood Cells 6.62 10^6/uL (4.5-5.90); Red Cell Distribution Width 14.3 % (11.8-14.3); White Blood Cell 7.3 10^3/uL (4.4-10.8)
[2024-09-05 09:33] LABS: Hematocrit 60.2 % (41.0-53.0)
[2024-09-05 09:35] LABS: Alanine Aminotransferase 52 U/L (7-40); Albumin 4.6 g/dL (3.2-4.8); Alkaline Phosphatase 129 U/L (46-116); Anion Gap 8 (5-15); Aspartate Aminotransferase 34 U/L (13-40); BUN/Creatinine Ratio 10.3 (10.0-20.0); Bilirubin, Total 0.7 mg/dL (0.2-1.0); Blood Urea Nitrogen 19 mg/dL (9-23); Calcium 10.5 mg/dL (8.7-10.4); Carbon Dioxide 22 mmol/L (20-31); Chloride 105 mmol/L (98-107); Glucose 105 mg/dL (74-106); Potassium 4.8 mmol/L (3.5-5.1); Sodium 135 mmol/L (136-145)
--- NOTE | 2024-09-05 09:58 | ECG ---
[facility] Test Date: 2024-09-05 Test Time: 09:57:27 Pat Name: ADE HARTMANN Department: ER Room: Gender: M Engineering Group Leader: ROBERT : 1965 Requested By: KAREN STEVENSON Order Number: [id number] Reading MD: Arnold Aguirre Measurements Intervals [place] Rate: 79 P: 38 ND: 170 QRS: 60 QRSD: 87 T: 27 QT: 365 QTc: 419 Interpretive Statements Sinus rhythm Electronically Signed On 09-05-2024 16:11:58 PST by Arnold Aguirre Please click the below link to view image of tracing.
[2024-09-05] MEDS: KETOROLAC TROMETH 30 MG/ML 1ML VIAL IM ONE (10:11)
--- NOTE | 2024-09-05 10:39 | ED.PDOC ---
HPI Comments 59-year-old male presents with a chief complaint of chest pain x 0300 this morning with associated coughing. Patient states that his pain is localized to his left chest wall, non-radiating, describes as sharp, and rates his pain a 7/10. Patient mentions that the onset of his pain began when he was sleeping this morning around 0300 in the morning. Patient endorses coughing for the past x 2 days and the pain is replicated with coughing fits. Patient endorses smoking cigarettes. No other symptoms or modifying factors present at this time. Chief Complaint: Chest Pain Time Seen by MD: 09:48 Primary Care Provider: NONE Reviewed Notes: Medications, Allergies Allergies: Coded Allergies: NO KNOWN ALLERGIES (Unverified , 09/07/21) Home Meds Active Scripts Meloxicam (Meloxicam) 7.5 Mg Tab, 1 TAB PO DAILYP PRN for 30 Days, #30 TAB 0 Refills Prov:NATHANIEL ARIAS REGENERATION OPERATOR 12/23/23 Cephalexin ( Keflex 500) 500 Mg Cap, 2 CAP PO BID for 7 Days, #28 CAP Prov:TYRA AGUIRRE DO 04/28/22 Amoxicillin & Pot Clavulanate (Amoxicillin/Potassium Cla) 875 Mg Tab, 1 TAB PO BID for 4 Days, #8 TAB Prov:MICHELLE GUY MD 09/17/21 Ascorbic Acid (Gnp Vitamin C W/Alicia Hips) 1,000 Mg Tab, 1000 MG PO DAILY for 30 Days, #30 TAB Prov:MICHELLE GUY MD 09/17/21 Albuterol Sulfate (VENTOLIN MDI) 90 Mcg Ih, 180 MCG IN TIDPRN PRN, #1 INH Prov:MICHELLE GUY MD 09/17/21 Cholecalciferol (Vitamin D3 Super Strength) 2,000 Unit Cap, 4000 UNIT PO DAILY for 30 Days, #60 CAP Prov:MICHELLE GUY MD 09/17/21 Rivaroxaban (XARELTO) 10 Mg Tab, 1 TAB PO DAILY, #20 TAB 0 Refills For DVT prophylaxis post COVID Prov:MICHELLE GUY MD 09/17/21 Zinc Sulfate (Zinc Sulfate) 220 Mg Tab, 220 MG PO DAILY for 20 Days, #20 TAB Prov:MICHELLE GUY MD 09/17/21 Information Source: Patient Mode of Arrival: Wheelchair Severity: Moderate Timing: Hours Duration: Since onset Prehospital treatment: None Location: Chest (L) Radiation: No Radiation Quality: Sharp Onset: At Rest Cardiac Risk Factors: Smoker PE Risk Factors: None History of: Similar pain in past Past Medical History PAST MEDICAL HISTORY: Kidney Stones Surgical History: Denies all surgeries Family History Family History: Reviewed,noncontributory to illness Social History Smoker: Non-Smoker Alcohol: Denies ETOH Use Drugs: Denies Drug Use Lives In: Home Constitutional: denies: chills, diaphoresis, fatigue, fever, malaise, sweats, weakness, others EENTM: denies: blurred vision, double vision, ear bleeding, ear discharge, ear drainage, ear pain, ear ringing, eye pain, eye redness, hearing loss, mouth pain, mouth swelling, nasal discharge, nose bleeding, nose congestion, nose pain, photophobia, tearing, throat pain, throat swelling, voice changes, others Respiratory: reports: cough; denies: hemoptysis, orthopnea, SOB at rest, shortness of breath, SOB with excertion, stridor, wheezing, others Cardiovascular: reports: chest pain; denies: dizzy spells, diaphoresis, Dyspnea on exertion, edema, irregular heart beat, left arm pain, lightheadedness, palpitations, PND, syncope, others Gastrointestinal: denies: abdomen distended, abdominal pain, blood streaked bowels, constipated, diarrhea, dysphagia, difficulty swallowing, hematemesis, melena, nausea, poor appetite, poor fluid intake, rectal bleeding, rectal pain, vomiting, others Genitourinary: denies: burning, dysuria, flank pain, frequency, hematuria, incontinence, penile discharge, penile sore, pain, testicle pain, testicle swelling, urgency, others Neurological: denies: dizziness, fainting, headache, left sided numbness, left sided weakness, numbness, paresthesia, pre-existing deficit, right sided numbness, right sided weakness, seizure, speech problems, tingling, tremors, weakness, others Musculoskeletal: denies: back pain, gout, joint pain, joint swelling, muscle pain, muscle stiffness, neck pain, others Integumetry: denies: bruises, change in color, change in hair/nails, dryness, laceration, lesions, lumps, rash, wounds, others Allergic/Immunocompromised: denies: Difficulty Healing, Frequent Infections, Hives, Itching, others Hematologic/Lymphatic: denies: anemia, blood clots, easy bleeding, easy bruising, swollen glands, others Endocrine: denies: excessive hunger, excessive sweating, excessive thirst, excessive urination, flushing, intolerance to cold, intolerance to heat, unexplained weight gain, unexplained weight loss, others Psychiatric: denies: anxiety, bipolar disorder, depression, hopeless, panic disorder, schizophrenia, sleepless, suicidal, others All Other Systems: Reviewed and Negative Physical Exam General Appearance: No Apparent Distress, Normal HEENT: Normal ENT Inspection, Pharynx Normal, TMs Normal Neck: Full Range of Motion, Non-Tender, Normal, Normal Inspection Respiratory: Chest Non-Tender, Lungs Clear, No Accessory Muscle Use, No Respiratory Distress, Normal Breath Sounds Cardiovascular: No Edema, No JVD, No Murmur, No Gallop, Normal Peripheral Pulses, Tachycardia Breast Exam: Deferred Gastrointestinal: No Organomegaly, Non Tender, No Pulsatile Mass, Normal Bowel Sounds, Soft Genitalia: Deferred Pelvic: Deferred Rectal: Deferred Extremities: No calf tenderness, Normal capillary refill, Normal inspection, Normal range of motion, Non-tender, No pedal edema Musculoskeletal : Apperance: Normal Neurologic: Alert, patient care nursing assistant II-XII nml as Tested, No Motor Deficits, Normal Affect, Normal Mood, No Sensory Deficits Cerebellar Function: Normal Reflexes: Normal Skin: Dry, Normal Color, Warm Lymphatic: No Adenopathy EKG EKG : Pulse Rate (adult): 79 Squire: Normal Cardiac Rhythm: NSR Block: None Hypertrophy: None ST: Nonsp Was a procedure done? Was a procedure done?: No CP Differential Dx Differential Diagnosis: Angina Differential Diagnosis: CHF Differential Diagnosis: Angina, Aortic dissection, Chest Wall Pain, Costochondritis, Esophageal reflux/spasm, Gastritis, Myocardial Infarction, Pericarditis, Pneumonia, Pneumothorax, Pulmonary Embolus X-Ray, Labs, Meds, VS Vital Signs Date Time Temp Pulse Resp B/P (MAP) Pulse Ox O2 Delivery O2 Flow Rate FiO2 09/05/24 10:10 98.9 77 17 130/93 (105) 95 98.9 09/05/24 09:57 79 09/05/24 09:02 73 09/05/24 08:54 98.4 78 22 129/104 (112) 97 Lab Test 09/05/24 10:02 09/05/24 08:59 Range/Units Troponin I High Sensitivity 6 6 </=54 ng/L White Blood Count 7.3 4.4-10.8 10^3/uL Red Blood Count 6.62 H 4.5-5.90 10^6/uL Hemoglobin 19.8 H 13.5-17.5 g/dL Hematocrit 60.2 H 41.0-53.0 % Mean Corpuscular Volume 91.0 80.0-100.0 fL Mean Corpuscular Hemoglobin 30.0 28.0-32.0 pg Mean Corpuscular Hemoglobin Concent 32.9 32.0-36.0 g/dL Red Cell Distribution Width 14.3 11.8-14.3 % Platelet Count 196 140-450 10^3/uL Mean Platelet Volume 8.5 6.9-10.8 fL Neutrophils (%) (Auto) 68.3 37.0-80.0 % Lymphocytes (%) (Auto) 15.5 10.0-50.0 % Monocytes (%) (Auto) 12.1 H 0.0-12.0 % Eosinophils (%) (Auto) 3.5 0.0-7.0 % Basophils (%) (Auto) 0.6 0.0-2.0 % Neutrophils # (Auto) 5.0 1.6-8.6 10 ^3/uL Lymphocytes # (Auto) 1.1 0.4-5.4 10 ^3/uL Monocytes # (Auto) 0.9 0-1.3 10 ^3/uL Eosinophils # (Auto) 0.3 0-0.8 10 ^3/uL Basophils # (Auto) 0 0-0.2 10 ^3/uL Nucleated Red Blood Cells 0.9 % D-Dimer, Quantitative 0.56 H 0.0-0.49 mg/L FEU Sodium Level 135 L 136-145 mmol/L Potassium Level 4.8 3.5-5.1 mmol/L Chloride Level 105 98-107 mmol/L Carbon Dioxide Level 22 20-31 mmol/L Anion Gap 8 5-15 Blood Urea Nitrogen 19 9-23 mg/dL Creatinine 1.85 H 0.700-1.30 mg/dL Glomerular Filtration Rate Calc 42 >90 mL/min BUN/Creatinine Ratio 10.3 10.0-20.0 Serum Glucose 105 74-106 mg/dL Calcium Level 10.5 H 8.7-10.4 mg/dL Total Bilirubin 0.7 0.2-1.0 mg/dL Aspartate Amino Transferase (AST) 34 13-40 U/L Alanine Aminotransferase (ALT) 52 H 7-40 U/L Alkaline Phosphatase 129 H 46-116 U/L Total Protein 8.0 5.7-8.2 g/dL Albumin 4.6 3.2-4.8 g/dL Current Medications Medications (Trade) Dose Ordered Sig/Deonna Route Start Time Stop Time Status Last Admin Ketorolac Tromethamine (Toradol Injection) 15 mg ONCE ONCE IM 09/05/24 10:00 09/05/24 10:01 DC 09/05/24 10:11 Time of 1ST Reevaluation: 10:18 Reevaluation 1ST: Unchanged Time of 2ND Reevaluation: 11:24 Reevaluation 2ND: Improved Patient Education/Counseling: Diagnosis, Treatment, Prognosis, Need For Follow Up Family Education/Counseling: Diagnosis, Treatment, Prognosis, Need For Follow Up, No Family Present Additional Information pt has pleuritic chest pain and chest wall tenderness. he has an extensive pulmonary history and now is splinting and not taking deep breaths. although he has no known PE risks, this cannot be excluded with an mildly elevated DDI. he will be admitted for pain control, empiric treatment for pneumonia, and further assessment for PE. the EKG has S in lead I, Q in lead III, no inverted T in III Departure 1 Departure Time of Disposition: 11:25 Impression: Primary Impression: Chest pain Qualified Codes: R07.9 - Chest pain, unspecified Additional Impressions: Pneumonia Qualified Codes: J18.9 - Pneumonia, unspecified organism Renal failure Qualified Codes: N19 - Unspecified kidney failure Disposition: ADMITTED INPATIENT Admit to: Tele Condition: Serious Critical Care Note Critical Care Time?: Yes (55 min-critical care time only) Critical care comment: Due to concerns for patients condition deteriorating, the care required my highest level of attention and readiness to intervene. I assessed the patient, reviewed the medical records, ordered the appropriate tests and treatments, then reassessed for results and responsiveness. I communicated with medical personnel and consultants and formulated a plan of care. Total critical care time excludes any procedures Stability Stability form required: No Heart Score Heart Score: Heart Score Response (Comments) Value History Slightly Suspicious 0 EKG Repolarization Disturb 1 Age 45-64 1 Risk Factors 1 or 2 risk factors 1 Troponin Normal limit 0 Total 3 I personally scribed for KAREN STEVENSON MD ([email or web address]) on 09/05/24 at 10:39. Electronically submitted by Brant Corona ([email or web address]). KAREN STEVENSON MD Sep 05, 2024 10:39
[2024-09-05] MEDS ORDERED: IPRATROPIUM BROM 0.5 MG/2.5ML INH SOL NEB PRN (16:15)
[2024-09-05] MEDS ORDERED: MORPHINE SULFATE INJ 2 MG/ml SYRG IV PRN (16:15)
[2024-09-05] MEDS ORDERED: ONDANSETRON HCL 4 MG/2 ML VIAL IV PRN (16:15)
[2024-09-05] MEDS ORDERED: ALBUTEROL SULF 2.5 MG/0.5ML(0.5%) NEB SOLN NEB PRN (16:15)
[2024-09-05] MEDS ORDERED: NITROGLYCERIN 0.4 MG SL TAB SL PRN (16:15)
[2024-09-05] MEDS ORDERED: LISI20TA56 PO (16:21)
--- NOTE | 2024-09-05 16:31 | DVHHP2 ---
History of Present Illness Reason for Visit: Chest pain History of Present Illness This 59-year-old male with significant past medical history of long COVID, presents in the ED with a chief complaint of cough and chest pain. The patient reports productive cough associated with sharp chest pain nonradiating and worse on exertion started early this morning. The patient states cough is causing CVA rib pain for which prompted the ED visit. The patient states unable to see PCP for a while. He denies fever, diaphoresis, chest palpitations, abdominal pain, or other acute symptoms. Past medical history of hypertension, obesity, tobacco use, pneumonia, and COVID Past Medical History As stated in HPI Past Surgical History Denies Family History Reviewed, non-contributory to the management of this case. Past Social History Admit to tobacco use Review of Systems Constitutional: Yes: Malaise; No: Fever, Chills, Sweats, Weakness, Other Eyes: No: Pain, Vision change, Conjunctivae inflammation, Eyelid inflammation, Other, Redness ENT: No: Ear pain, Ear discharge, Nose pain, Nose discharge, Nose congestion, Mouth pain, Mouth swelling, Throat pain, Throat swelling, Other Respiratory: Cough, Shortness of breath; No: Dry, SOB with excertion, Wheezing, Hemoptysis, Pleuritic Pain, Sputum, Wheezing, Other Cardiovascular: Chest Pain; No: Palpitations, Orthopnea, Paroxysmal Noc. Dyspnea, Edema, Lt Headedness, Other Gastrointestinal: No: Nausea, Vomiting, Abdominal Pain, Diarrhea, Constipation, Melena, Hematochezia, Other Genitourinary: No Dysuria, No Frequency, No Incontinence, No Hematuria, No Retention, No Other Musculoskeletal: No: other, neck pain, shoulder pain, arm pain, back pain, hand pain, leg pain, foot pain Skin: No: Rash, Lesions, Jaundice, Bruising, Other Neurological: No: Weakness, Numbness, Incoordination, Change in speech, Confusion, Seizures, Other Allergies: Coded Allergies: NO KNOWN ALLERGIES (Unverified , 09/07/21) Exam Vital Signs Vital Signs Date Time Temp Pulse Resp B/P (MAP) Pulse Ox O2 Delivery O2 Flow Rate FiO2 09/05/24 11:30 79 09/05/24 10:10 98.9 17 130/93 (105) 95 98.9 General Appearance: Alert, Oriented X3, Cooperative, mild distress HEENT: Atraumatic, PERRLA, EOMI, Mucous membr. moist/pink Respiratory: Clear to auscultation, Normal air movement Cardiovascular: Regular rate, Normal S1, Normal S2 Abdominal: Normal bowel sounds, Soft, No tenderness Extremities: No clubbing, No cyanosis, No edema, Normal pulses Skin: No rashes, No breakdown, No significant lesion Neuro: Normal gait, Normal speech, Normal tone Psych/Mental Status: Mental status NL Labs/Xrays Labs Test 09/05/24 10:02 09/05/24 08:59 Range/Units Troponin I High Sensitivity 6 </=54 ng/L White Blood Count 7.3 4.4-10.8 10^3/uL Red Blood Count 6.62 H 4.5-5.90 10^6/uL Hemoglobin 19.8 H 13.5-17.5 g/dL Hematocrit 60.2 H 41.0-53.0 % Mean Corpuscular Volume 91.0 80.0-100.0 fL Mean Corpuscular Hemoglobin 30.0 28.0-32.0 pg Mean Corpuscular Hemoglobin Concent 32.9 32.0-36.0 g/dL Red Cell Distribution Width 14.3 11.8-14.3 % Platelet Count 196 140-450 10^3/uL Mean Platelet Volume 8.5 6.9-10.8 fL Neutrophils (%) (Auto) 68.3 37.0-80.0 % Lymphocytes (%) (Auto) 15.5 10.0-50.0 % Monocytes (%) (Auto) 12.1 H 0.0-12.0 % Eosinophils (%) (Auto) 3.5 0.0-7.0 % Basophils (%) (Auto) 0.6 0.0-2.0 % Neutrophils # (Auto) 5.0 1.6-8.6 10 ^3/uL Lymphocytes # (Auto) 1.1 0.4-5.4 10 ^3/uL Monocytes # (Auto) 0.9 0-1.3 10 ^3/uL Eosinophils # (Auto) 0.3 0-0.8 10 ^3/uL Basophils # (Auto) 0 0-0.2 10 ^3/uL Nucleated Red Blood Cells 0.9 % D-Dimer, Quantitative 0.56 H 0.0-0.49 mg/L FEU Sodium Level 135 L 136-145 mmol/L Potassium Level 4.8 3.5-5.1 mmol/L Chloride Level 105 98-107 mmol/L Carbon Dioxide Level 22 20-31 mmol/L Anion Gap 8 5-15 Blood Urea Nitrogen 19 9-23 mg/dL Creatinine 1.85 H 0.700-1.30 mg/dL Glomerular Filtration Rate Calc 42 >90 mL/min BUN/Creatinine Ratio 10.3 10.0-20.0 Serum Glucose 105 74-106 mg/dL Calcium Level 10.5 H 8.7-10.4 mg/dL Total Bilirubin 0.7 0.2-1.0 mg/dL Aspartate Amino Transferase (AST) 34 13-40 U/L Alanine Aminotransferase (ALT) 52 H 7-40 U/L Alkaline Phosphatase 129 H 46-116 U/L Total Protein 8.0 5.7-8.2 g/dL Albumin 4.6 3.2-4.8 g/dL PROCEDURE(s): CXRP - CHEST PORTABLE REASON: cp ORDER NUMBER(s): [id number], ACCESSION NUMBER(s): [id number] CHEST RADIOGRAPH Indication: cp Technique: Single frontal view of the chest was obtained COMPARISON: CHEST PORTABLE on DOS: 09/11/21 FINDINGS: Lines and Tubes: None Lungs: Low lung volumes with suggestion of mild superimposed hazy /interstitial opacities. Pleura: No effusion. No pneumothorax. Cardiomediastinal contours: Mild stable enlargement of the cardiac silhouette. Bones: Unremarkable IMPRESSION: Bronchovascular crowding with possible mild superimposed edema/infiltrates. There were significantly worse airspace opacities on the comparison chest x-ray from 09/11/2021. Assessment/Plan Assessment/Plan # atypical chest pain # elevated D-dimer # rule out PE # rule out DVT # possible pneumonia # rule out influenza and Covid # hx of long COVID Admit to telemetry unit Empiric antibiotic azithromycin and ceftriaxone until cultures Blood and sputum culture V/Q scan pending Med neb O2 supplement # LAVERNE on CKD IV fluid Monitor # morbid obesity Lifestyle modification counseled # tobacco use Smoking cessation counseled Nicotine patch DVT prophylaxis Medical plan discussed with patient and spouse Plan discussed with: Patient, Spouse My Orders Orders - LUANNE FELIX Procedure Category Date Status Time Blood Culture JOANN 09/05/24 Transmitted 16:05 Admit ADMIT 09/05/24 Transmitted 16:05 Code Status CODE 09/05/24 Transmitted 16:05 0.9% Ns 1000 Ml PHA 09/05/24 Transmitted 16:15 Hydrocodone-Acet PHA 09/05/24 Transmitted 5/325mg Tab ([place] 16:15 Ondansetron Hcl PHA 09/05/24 Transmitted (Zofran) 16:15 Enoxaparin Sodium PHA 09/06/24 Transmitted (Lovenox) 10:00 Complete Blood Count LAB 09/06/24 Verified 04:00 Comprehensive LAB 09/06/24 Verified Metabolic Panel 04:00 Cardiac DIET 09/05/24 Transmitted Diet-2gna,Lofat,Lochol Dinner Echo 2d Mode Cardiac US 09/05/24 Transmitted DOP 16:05 Condition: Fair [facility] 09/05/24 Transmitted 16:05 Acetaminophen Tablet [facility] 09/05/24 Transmitted (Tylenol Tablet) 16:15 Morphine Sulfate PHA 09/05/24 Transmitted Injection 16:15 Nitroglycerin [facility] 09/05/24 Transmitted Sublingual (Ntrostat 16:15 Morphine Sulfate PHA 09/05/24 Transmitted Injection 16:15 Stat Ekg For Chest [facility] 09/05/24 Transmitted Pain 16:05 Notify Md Of Changes [facility] 09/05/24 Transmitted From Base 16:05 Boiler Repairman For [facility] 09/05/24 Transmitted 24 Hours 16:05 Emergency Dysrhythmia [facility] 09/05/24 Transmitted Protocol 16:05 Rhythm Strips Once [facility] 09/05/24 Transmitted Every Shift 16:05 Oxygen By Nasal RT 09/05/24 Transmitted Cannula 16:05 Rapid Influenza A&B LAB 09/05/24 Transmitted 16:05 Covid19 Antigen [facility] 09/05/24 Transmitted Albuterol Medneb PHA 09/05/24 Transmitted (Ventolin Medneb) 16:15 Albuterol Medneb PHA 09/05/24 Transmitted (Ventolin Medneb) 18:00 Ipratropium Medneb PHA 09/05/24 Transmitted (Atrovent Medneb) 16:15 Ipratropium Medneb PHA 09/05/24 Transmitted (Atrovent Medneb) 18:00 Bilat Lower Dvt US 09/05/24 Transmitted 16:05 Date of Service: Sep 05, 2024 Billing Provider: LUANNE FELIX INSURANCE RISK ANALYST Common Visit Codes: [id number] INP/OBS CARE (HIGH) LUANNE FELIX [facility] Sep 05, 2024 16:31
--- NOTE | 2024-09-05 17:06 | DVH ---
Bilateral lower extremity venous duplex Clinical History: Elevated D-dimer Comparison: None Technique: Duplex Doppler evaluation of the deep venous systems of both lower extremities from the common femora l veins to the popliteal veins including color Doppler and spectral/pulsed waveform analysis was perf ormed. Findings: RIGHT SIDE: The common femoral vein demonstrates appropriate compressibility and waveform variability. There is compressibility/patency of the great saphenous vein at the proximal thigh. The femoral vein demonstrates appropriate compressibility and waveform variability. The deep femoral vein demonstrates appropriate compressibility and waveform variability. The popliteal vein demonstrates appropriate compressibility and waveform variability. There is normal compressibility at the tibioperoneal trunk. LEFT SIDE: The common femoral vein demonstrates appropriate compressibility and waveform variability. There is compressibility/patency of the great saphenous vein at the proximal thigh. The femoral vein demonstrates appropriate compressibility and waveform variability. The deep femoral vein demonstrates appropriate compressibility and waveform variability. The popliteal vein demonstrates appropriate compressibility and waveform variability. There is normal compressibility at the tibioperoneal trunk. Impression: No right or left femoropopliteal venous thrombosis.
[2024-09-05 17:35] VITALS: PULSE 75; RESP 16; O2SAT 95
[2024-09-05] MEDS: cefTRIAXone 1GM/50ML D5W 50 ML IV ONE (17:42)
[2024-09-05] MEDS: NICOTINE 7MG/24HR TOPICAL PATCH TD ONE (17:43)
[2024-09-05] MEDS: SODIUM CHLORIDE 0.9% 1,000 ML IV SCH (17:58)
[2024-09-05] MEDS: AZITHROMYCIN 500MG/ 250ML 250 ML IV ONE (17:58)
[2024-09-05 18:38] LABS: COVID19 ANTIGEN SOFIA FIA NEGATIVE (NEGATIVE)
[2024-09-05 18:39] LABS: Rapid Influenza A Negative (Negative); Rapid Influenza B Negative (Negative)
[2024-09-05 19:06] VITALS: PULSE 75; RESP 20; O2SAT 96
[2024-09-05] MEDS: ALBUTEROL SULF 2.5 MG/0.5ML(0.5%) NEB SOLN NEB SCH (19:06)
[2024-09-05] MEDS: IPRATROPIUM BROM 0.5 MG/2.5ML INH SOL NEB SCH (19:06)
[2024-09-05 19:12] VITALS: PULSE 76; RESP 18; O2SAT 99
[2024-09-05 20:00] VITALS: PULSE 77
[2024-09-05 20:32] VITALS: BP 151/89; PULSE 80; PULSE 81; RESP 20; TEMP 97.5; O2SAT 97
[2024-09-05] MEDS: ACETAMINOPHEN 325 MG TAB PO PRN (20:49)
[2024-09-05 21:00] VITALS: BP_SYST 117; BP_SYST 140; BP_DIAS 75; BP_DIAS 93; PULSE 76; PULSE 83; RESP 18; RESP 20; TEMP 97.8; TEMP 98.9; O2SAT 93; O2SAT 99
[2024-09-05] MEDS: MORPHINE SULFATE INJ 2 MG/ml SYRG IV PRN (22:38)
[2024-09-06] VITALS (15 sets, daily range): BP systolic 110–148; BP diastolic 64–86; PULSE 61–83; RESP 16–20; TEMP 97.9–98.5; O2SAT 72–99
[2024-09-06] MEDS: guaiFENesin-DM 100/10mg/5ml SYR PO PRN (00:57)
[2024-09-06] MEDS: HYDROcodone-ACET 5/325MG TAB PO PRN (04:06)
--- NOTE | 2024-09-06 07:12 | ECG ---
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
[2024-09-06 08:20] LABS: Albumin 4.3 g/dL (3.2-4.8); Alkaline Phosphatase 116 U/L (46-116); Anion Gap 8 (5-15); Aspartate Aminotransferase 30 U/L (13-40); BUN/Creatinine Ratio 11.6 (10.0-20.0); Blood Urea Nitrogen 22 mg/dL (9-23); Carbon Dioxide 22 mmol/L (20-31); Chloride 104 mmol/L (98-107); Glucose 96 mg/dL (74-106); Potassium 4.3 mmol/L (3.5-5.1)
[2024-09-06 08:21] LABS: Bilirubin, Total 0.8 mg/dL (0.2-1.0); Total Protein 7.2 g/dL (5.7-8.2)
[2024-09-06 08:23] LABS: Alanine Aminotransferase 49 U/L (7-40); Sodium 134 mmol/L (136-145)
[2024-09-06] MEDS: cefTRIAXone 1GM/50ML D5W 50 ML IV SCH (08:39)
[2024-09-06] MEDS: ENOXAPARIN SOD 40 MG/0.4 ML SYRINGE SC SCH (10:00)
[2024-09-06] MEDS: LISINOPRIL 20 MG TAB PO SCH (10:00)
[2024-09-06] MEDS: NICOTINE 7MG/24HR TOPICAL PATCH TD SCH (10:00)
[2024-09-06 10:07] LABS: Hepatitis B Surface Antigen Negative (Negative)
[2024-09-06 10:08] LABS: Hepatitis C Antibody Negative (Negative)
[2024-09-06 10:23] LABS: Basophils # (auto) 0.1 10 ^3/uL (0-0.2); Mean Corpuscular Volume 91.1 fL (80.0-100.0)
[2024-09-06 10:25] LABS: Eosinophils # (auto) 0.2 10 ^3/uL (0-0.8); Eosinophils % (auto) 3.5 % (0.0-7.0); Hemoglobin 18.6 g/dL (13.5-17.5); Lymphocytes # (auto) 1.1 10 ^3/uL (0.4-5.4); Lymphocytes % (auto) 17.2 % (10.0-50.0); Mean Corpuscular Hemoglobin 30.3 pg (28.0-32.0); Mean Corpuscular Hgb Conc. 33.3 g/dL (32.0-36.0); Monocytes # (auto) 1.1 10 ^3/uL (0-1.3); Monocytes % (auto) 17.1 % (0.0-12.0); Neutrophils # (auto) 3.9 10 ^3/uL (1.6-8.6); Neutrophils % (auto) 61.2 % (37.0-80.0); Nucleated Red Blood Cells % 0.3 %; Platelet Count (auto) 183 10^3/uL (140-450); Red Blood Cells 6.16 10^6/uL (4.5-5.90); White Blood Cell 6.4 10^3/uL (4.4-10.8)
[2024-09-06 10:33] LABS: Hematocrit 56.1 % (41.0-53.0)
--- NOTE | 2024-09-06 10:52 | DVHPN2 ---
Progress Note Date Seen: Sep 06, 2024 Medical Necessity Reason Pt with a Central, PICC or Fol: No Subjective Patient reports: No new complaints Review of Systems: HEENT:Normal, CVS:Normal, RESPIRATORY:Normal, GI:Normal, :Normal, MSK:Normal, NEURO:Normal Objective vital signs Vital Sign Date Time Temp Pulse Resp B/P (MAP) Pulse Ox O2 Delivery O2 Flow Rate FiO2 09/06/24 10:00 110/65 09/06/24 09:00 97.9 64 19 91 97.9 09/06/24 06:46 Room Air* 0 21 Total Intake and Output 09/05/24 09/05/24 09/06/24 15:00 23:00 07:00 Intake Total 375 ml 1200 ml Balance 375 ml 1200 ml medications Current Medications Medications Dose Ordered Sig/Deonna Route Start Time Stop Time Status Last Admin Dose Admin Sodium Chloride 1,000 ml @ 75 mls/hr [id number] IV 09/05/24 16:15 09/05/24 17:58 75 MLS/HR Acetaminophen/ Hydrocodone Bitart 1 tab Q4HP PRN PO 09/05/24 16:15 09/06/24 04:06 1 TAB Ondansetron HCl 4 mg Q4HP PRN IV 09/05/24 16:15 Enoxaparin Sodium 40 mg DAILY SC 09/06/24 10:00 Acetaminophen 650 mg Q6HP PRN PO 09/05/24 16:15 09/05/24 20:49 650 MG Morphine Sulfate 2 mg Q4HPRN PRN IV 09/05/24 16:15 09/06/24 08:07 2 MG Nitroglycerin 0.4 mg Q5MINP PRN SL 09/05/24 16:15 Morphine Sulfate 2 mg Q30M PRN IV 09/05/24 16:15 Albuterol 2.5 mg Q4HPRN PRN NEB 09/05/24 16:15 Albuterol 2.5 mg Q6HR NEB 09/05/24 18:00 09/06/24 06:44 2.5 MG Ipratropium [place] 0.5 mg Q4HPRN PRN NEB 09/05/24 16:15 Ipratropium [place] 0.5 mg Q6HR NEB 09/05/24 18:00 09/06/24 06:44 0.5 MG Lisinopril 20 mg DAILY PO 09/06/24 10:00 Nicotine 1 patch DAILY TD 09/06/24 10:00 Ceftriaxone Sodium 50 ml @ 100 mls/hr DAILY@09 IV 09/06/24 09:00 09/06/24 08:39 100 MLS/HR Azithromycin 250 ml @ 125 mls/hr DAILY IV 09/06/24 10:00 Guaifenesin/ Dextromethorphan 10 ml Q6HP PRN PO 09/05/24 23:00 09/06/24 00:57 10 ML Examination: GENERAL:Normal, HEENT:Normal, NECK:Normal, LUNGS:Normal, CVS:Normal, ABDOMEN:Normal, MSK:Normal, SKIN:Normal, NEURO:Normal, :Normal laboratory and microbiology Laboratory Tests 09/06/24 09:51 09/06/24 06:45 Test 09/06/24 06:45 Range/Units Serum Glucose 96 74-106 mg/dL Problem List/Assessment/Plan Problem List/Assessment/Plan #1 ? copd with exacerbation: cont meds #2 ?pneumonia: gram positive/neg: iv antibiotics #3 htn #4 h/o covid 19 #5 ckd stage 3: usg #6 morbid obesity #7 nicotine dependence: advised to quit, nicotine patch- time spent 11 mins #8 ? [facility] advance care planning- full code- time spent 19 mins Plan discussed with: Patient Date of Service: Sep 06, 2024 Billing Provider: GERALDO VIRAMONTES MD Common Visit Codes: [id number] INP/OBS CARE(HIGH) Secondary Visit Codes: 95105-RHEHH CHNG SMOKING >10MIN, 86670-[id number] CARE PLAN 30 MINUTES GERALDO VIRAMONTES MD Sep 06, 2024 10:52
[2024-09-06] MEDS: AZITHROMYCIN 500MG/ 250ML 250 ML IV SCH (11:36)
--- NOTE | 2024-09-06 11:40 | DVH ---
INDICATION: renal failure TECHNIQUE: Multiple real-time sonographic images of the kidneys and bladder were obtained. COMPARISON: None FINDINGS: The right kidney measures 11 cm in length, which is normal in size. There is normal echogenicity of t he right kidney. No hydronephrosis. The left kidney measures 13 cm in length, which is normal in size. There is normal echogenicity of th e left kidney. No hydronephrosis. No large intraluminal masses are seen in the bladder. Prior to voiding the bladder volume measures volume 28 cc. IMPRESSION: 1. Normal sonographic appearance of the kidneys. No hydronephrosis.
[2024-09-06] MEDS: FUROSEMIDE 20 MG TAB PO ONE (11:47)
--- NOTE | 2024-09-06 12:02 | DVHSR ---
APPROVED REPORT EXAM: Two-dimensional and M-mode echocardiogram with Doppler and color Doppler. Blood Pressure: 117/70 mmHg INDICATION Atypical chest pain RISK FACTORS Obesity: Height: 5'9", Weight: 369 DIMENSIONS LVDd4.6 (3.8-5.7cm)LA (2D) (1.9-4.0cm)Aortic Root3.9 (2.0-3.7cm) LVDs3.2 (2.5-4.0cm)LA (MM) (1.9-4.0cm)Aortic Cusp Exc1.9 (1.5-2.0cm) EF (%) 60.0 (55-70%)Rt. Atrium (1.9-4.0cm)Asc. Aorta cm IVSd1.1 (0.7-1.1cm)RV (D) (1.8-2.4cm) PWd1.1 (0.7-1.1cm) Mitral Valve MitralMitral Stenosis E wave0.66m/sMV Mean GR.mmHg A wave0.94m/sMV Peak GR.mmHg E/A ratio0.72D MVAcm2 DECEL [id number] 1/2 [place] Aortic Valve Aortic ValveAortic Stenosis V10.91m/Harjeet Mean GR.4mmHg V21.30m/Harjeet Peak GR.7mmHg LVOT Diameter2.1 (1.8-2.4cm)Doppler AVA2.42cm2 Pulmonic Valve V21.21m/s Tricuspid Valve TR Velocity2.83m/s [id number] LEFT VENTRICLE The left ventricle is of normal size. Wall thickness is normal. Ejection fraction is normal and is estimated at 60%. There is no gross wall motion abnormalities but endocardial definition is suboptim al. There is grade II diastolic dysfunction. RIGHT VENTRICLE Not well visualized. ATRIA Left atrium is mildly dilated in size. Right atrium is not well visualized. Not well visualized. MITRAL VALVE Normal structure and function. No significant mitral regurgitation. PULMONIC VALVE Likely normal. TRICUSPID VALVE Likely normal. There is mild tricuspid regurgitation team. PA systolic pressure is estimated at 40- 45 mm Hg. AORTIC VALVE Normal structure and function. GREAT VESSELS The aortic root measures 3.9 cm at the level of sinuses of Valsalva. PERICARDIAL EFFUSION No significant pericardial effusion. IVC is not well visualized. Other Information Quality : Technically LimitedRhythm : Technically limited study due to body habitus and patient position. Conclusion The study is very technically limited. Left ventricular is of normal size and normal systolic function. Ejection fraction is estimated at 60%. Grade II diastolic dysfunction. The right ventricle is not well visualized. No hemodynamically significant valvular disease. PA systolic pressure is estimated at 40-45 mm Hg.
[2024-09-07] VITALS (18 sets, daily range): BP systolic 103–132; BP diastolic 49–88; PULSE 67–95; RESP 18–20; TEMP 97.8–98.5; O2SAT 92–100
[2024-09-07 07:35] LABS: Basophils # (auto) 0.1 10 ^3/uL (0-0.2); Eosinophils # (auto) 0.3 10 ^3/uL (0-0.8); Hemoglobin 18.9 g/dL (13.5-17.5); Monocytes # (auto) 1.2 10 ^3/uL (0-1.3); Neutrophils # (auto) 4.4 10 ^3/uL (1.6-8.6); White Blood Cell 7.4 10^3/uL (4.4-10.8)
[2024-09-07 07:39] LABS: Basophils % (auto) 1.8 % (0.0-2.0); Eosinophils % (auto) 4.5 % (0.0-7.0); Hematocrit 56.6 % (41.0-53.0); Lymphocytes # (auto) 1.3 10 ^3/uL (0.4-5.4); Lymphocytes % (auto) 17.8 % (10.0-50.0); Mean Corpuscular Hemoglobin 30.5 pg (28.0-32.0); Mean Corpuscular Hgb Conc. 33.5 g/dL (32.0-36.0); Mean Corpuscular Volume 91.1 fL (80.0-100.0); Monocytes % (auto) 16.7 % (0.0-12.0); Neutrophils % (auto) 59.2 % (37.0-80.0); Nucleated Red Blood Cells % 0.1 %; Platelet Count (auto) 196 10^3/uL (140-450); Red Blood Cells 6.22 10^6/uL (4.5-5.90); Red Cell Distribution Width 14.4 % (11.8-14.3)
[2024-09-07 07:41] LABS: Anion Gap 9 (5-15); Carbon Dioxide 23 mmol/L (20-31); Chloride 101 mmol/L (98-107); Potassium 4.4 mmol/L (3.5-5.1)
[2024-09-07 07:42] LABS: Calcium 10.1 mg/dL (8.7-10.4)
[2024-09-07 07:47] LABS: BUN/Creatinine Ratio 12.2 (10.0-20.0); Blood Urea Nitrogen 23 mg/dL (9-23); Glucose 98 mg/dL (74-106)
[2024-09-07 07:48] LABS: Sodium 133 mmol/L (136-145)
[2024-09-07] MEDS: FUROSEMIDE 20 MG TAB PO SCH (09:20)
--- NOTE | 2024-09-07 11:07 | DVHPN2 ---
Progress Note Date Seen: Sep 07, 2024 Medical Necessity Reason Pt with a Central, PICC or Fol: No Subjective Patient reports: No new complaints Review of Systems: HEENT:Normal, CVS:Normal, RESPIRATORY:Normal, GI:Normal, :Normal, MSK:Normal, NEURO:Normal Objective vital signs Vital Sign Date Time Temp Pulse Resp B/P (MAP) Pulse Ox O2 Delivery O2 Flow Rate FiO2 09/07/24 09:21 132/57 09/07/24 09:00 98.5 78 18 95 98.5 09/07/24 08:00 Room Air* 0 21 Total Intake and Output 09/06/24 09/06/24 09/07/24 15:00 23:00 07:00 Intake Total 1700 ml 350 ml Balance 1700 ml 350 ml medications Current Medications Medications Dose Ordered Sig/Deonna Route Start Time Stop Time Status Last Admin Dose Admin Acetaminophen/ Hydrocodone Bitart 1 tab Q4HP PRN PO 09/05/24 16:15 09/07/24 03:28 1 TAB Ondansetron HCl 4 mg Q4HP PRN IV 09/05/24 16:15 Enoxaparin Sodium 40 mg DAILY SC 09/06/24 10:00 Acetaminophen 650 mg Q6HP PRN PO 09/05/24 16:15 09/05/24 20:49 650 MG Morphine Sulfate 2 mg Q4HPRN PRN IV 09/05/24 16:15 09/07/24 02:20 2 MG Nitroglycerin 0.4 mg Q5MINP PRN SL 09/05/24 16:15 Morphine Sulfate 2 mg Q30M PRN IV 09/05/24 16:15 Albuterol 2.5 mg Q4HPRN PRN NEB 09/05/24 16:15 Albuterol 2.5 mg Q6HR NEB 09/05/24 18:00 09/07/24 06:44 2.5 MG Ipratropium [place] 0.5 mg Q4HPRN PRN NEB 09/05/24 16:15 Ipratropium [place] 0.5 mg Q6HR NEB 09/05/24 18:00 09/07/24 06:44 0.5 MG Lisinopril 20 mg DAILY PO 09/06/24 10:00 09/07/24 09:21 20 MG Nicotine 1 patch DAILY TD 09/06/24 10:00 Ceftriaxone Sodium 50 ml @ 100 mls/hr DAILY@09 IV 09/06/24 09:00 09/07/24 08:52 100 MLS/HR Azithromycin 250 ml @ 125 mls/hr DAILY IV 09/06/24 10:00 09/06/24 11:36 125 MLS/HR Guaifenesin/ Dextromethorphan 10 ml Q6HP PRN PO 09/05/24 23:00 09/07/24 08:50 10 ML Furosemide 20 mg DAILY PO 09/07/24 10:00 09/07/24 09:20 20 MG Examination: GENERAL:Normal, HEENT:Normal, NECK:Normal, LUNGS:Normal, CVS:Normal, ABDOMEN:Normal, MSK:Normal, SKIN:Normal, NEURO:Normal, :Normal laboratory and microbiology Laboratory Tests 09/07/24 06:40 Test 09/07/24 06:40 Range/Units Serum Glucose 98 74-106 mg/dL Microbiology Date/Time Source Procedure Growth Status 09/05/24 17:17 Blood Blood Culture - Preliminary NO GROWTH AFTER 24 HOURS OF INCUBATION. Resulted Problem List/Assessment/Plan Problem List/Assessment/Plan #1 ? copd with exacerbation: cont meds, add steroids #2 ?pneumonia: gram positive/neg: iv antibiotics, ct chest, vq scan #3 htn #4 h/o covid 19 #5 ckd stage 3: usg #6 morbid obesity #7 nicotine dependence: advised to quit, nicotine patch- time spent 11 mins #8 ? [facility] advance care planning- full code- time spent 19 mins Plan discussed with: Patient, Spouse Date of Service: Sep 07, 2024 Billing Provider: GERALDO VIRAMONTES MD Common Visit Codes: [id number] INP/OBS CARE(HIGH) GERADLO VIRAMONTES MD Sep 07, 2024 11:07
--- NOTE | 2024-09-07 12:16 | DVH ---
NUCLEAR MEDICINE VENTILATION/PERFUSION LUNG SCAN. INDICATION: PULMONARY EMBOLISM COMPARISON: None TECHNIQUE: Following intravenous demonstration of 5.8 millicuries of technetium 99m MAA, and inhala tion of 10.2 mCi of Xe 133 scintigrams were obtained in multiple projections of the lungs. FINDINGS: There is normal uptake of radionuclide on both the ventilation and perfusion portions of the examinat ion. No mismatched perfusion defects are demonstrated. Uptake is normally homogeneous. IMPRESSION: Low probability for PE.
--- NOTE | 2024-09-07 12:46 | DVH ---
CT Chest without intravenous contrast INDICATION: PNEUMONIA TECHNIQUE: Multidetector spiral CT of the chest was performed from the lung apices to the upper abdom en. Axial, coronal and sagittal multiplanar reformats were performed. Radiation Dose : 1. Chest: CTDI volume is 31.36 mGy. Dose-length product is 1187.25 mGy*cm The dose indicators for CT are the volume Computed Tomography (CT) Dose Index (CTDIvol) and the Dose Length Product (DLP), and are measured in units of mGy and mGy-cm, respectively. These indicators are not patient dose, but values generated from the CT scanner acquisition factors. The report includes radiation exposure data for exposures received during this examination. Comparison: Chest radiograph dated 09/05/2024 and V/Q scan dated 09/07/2024 Findings: Lower neck: Normal thyroid. Lungs: No focal consolidation. Mild interlobular septal thickening. Heart/Vascular Structures: Cardiomegaly. Coronary artery calcifications. Vascular calcifications of t he aorta. Lymph Nodes: No adenopathy Pleura: No pleural effusion or significant pneumothorax. Musculoskeletal: No acute osseous abnormality. Multilevel degenerative changes of the spine. Soft tissues: Normal. Upper abdomen: Hepatic steatosis. IMPRESSION: No pneumonia/airspace consolidation. Mild diffuse interlobular septal thickening most prominent at the apices. Differential considerations could include mild congestion/fluid overload versus early changes of pulmonary fibrosis. Radiation optimization: All CT scans at this facility use at least one of these dose optimization emma hniques: automated exposure control mA and/or kV adjustment per patient size (includes targeted exam s where dose is matched to clinical indication) or iterative reconstruction.
[2024-09-07] MEDS: methylPREDNISolone SOD SUCC 40 MG/ML VL IV ONE (15:05)
[2024-09-07] MEDS: methylPREDNISolone SOD SUCC 40 MG/ML VL IV SCH (21:11)
[2024-09-08] VITALS (15 sets, daily range): BP systolic 87–143; BP diastolic 55–78; PULSE 71–88; RESP 18–20; TEMP 97.4–98.2; O2SAT 91–97
[2024-09-08 06:09] LABS: Chloride 102 mmol/L (98-107); Potassium 4.9 mmol/L (3.5-5.1)
[2024-09-08 06:10] LABS: Anion Gap 8 (5-15)
[2024-09-08 06:19] LABS: Blood Urea Nitrogen 25 mg/dL (9-23); Calcium 10.7 mg/dL (8.7-10.4); Carbon Dioxide 20 mmol/L (20-31); Glucose 163 mg/dL (74-106); Sodium 130 mmol/L (136-145)
[2024-09-08] MEDS: AZITHROMYCIN 250 MG TAB PO SCH (09:11)
--- NOTE | 2024-09-08 11:15 | DVHPN2 ---
Progress Note Date Seen: Sep 08, 2024 Medical Necessity Reason Pt with a Central, PICC or Fol: No Subjective Patient reports: No new complaints Review of Systems: HEENT:Normal, CVS:Normal, RESPIRATORY:Normal, GI:Normal, :Normal, MSK:Normal, NEURO:Normal Objective vital signs Vital Sign Date Time Temp Pulse Resp B/P (MAP) Pulse Ox O2 Delivery O2 Flow Rate FiO2 09/08/24 09:12 110/69 09/08/24 09:00 98.2 84 20 95 98.2 09/08/24 06:52 Room Air* 0 21 Total Intake and Output 09/07/24 09/07/24 09/08/24 15:00 23:00 07:00 Intake Total 50 ml 2600 ml 1300 ml Balance 50 ml 2600 ml 1300 ml medications Current Medications Medications Dose Ordered Sig/Deonna Route Start Time Stop Time Status Last Admin Dose Admin Acetaminophen/ Hydrocodone Bitart 1 tab Q4HP PRN PO 09/05/24 16:15 09/08/24 02:41 1 TAB Ondansetron HCl 4 mg Q4HP PRN IV 09/05/24 16:15 Enoxaparin Sodium 40 mg DAILY SC 09/06/24 10:00 Acetaminophen 650 mg Q6HP PRN PO 09/05/24 16:15 09/08/24 09:12 650 MG Morphine Sulfate 2 mg Q4HPRN PRN IV 09/05/24 16:15 09/08/24 00:02 2 MG Nitroglycerin 0.4 mg Q5MINP PRN SL 09/05/24 16:15 Morphine Sulfate 2 mg Q30M PRN IV 09/05/24 16:15 Albuterol 2.5 mg Q4HPRN PRN NEB 09/05/24 16:15 Albuterol 2.5 mg Q6HR NEB 09/05/24 18:00 09/08/24 06:52 2.5 MG Ipratropium [place] 0.5 mg Q4HPRN PRN NEB 09/05/24 16:15 Ipratropium [place] 0.5 mg Q6HR NEB 09/05/24 18:00 09/08/24 06:52 0.5 MG Lisinopril 20 mg DAILY PO 09/06/24 10:00 09/08/24 09:12 20 MG Nicotine 1 patch DAILY TD 09/06/24 10:00 Ceftriaxone Sodium 50 ml @ 100 mls/hr DAILY@09 IV 09/06/24 09:00 09/08/24 09:10 100 MLS/HR Guaifenesin/ Dextromethorphan 10 ml Q6HP PRN PO 09/05/24 23:00 09/08/24 09:11 10 ML Azithromycin 500 mg DAILY PO 09/08/24 10:00 09/08/24 09:11 500 MG Guaifenesin/ Dextromethorphan 10 ml Q4HP PRN PO 09/07/24 11:15 Methylprednisolone Sodium Succinate 40 mg BID IV 09/07/24 22:00 09/08/24 09:10 40 MG Examination: GENERAL:Normal, HEENT:Normal, NECK:Normal, LUNGS:Normal, CVS:Normal, ABDOMEN:Normal, MSK:Normal, SKIN:Normal, NEURO:Normal, :Normal laboratory and microbiology Laboratory Tests 09/08/24 05:20 09/07/24 06:40 Test 09/08/24 05:20 Range/Units Serum Glucose 163 H 74-106 mg/dL Microbiology Date/Time Source Procedure Growth Status 09/05/24 17:17 Blood Blood Culture - Preliminary NO GROWTH AFTER 48 HOURS OF INCUBATION. Resulted Problem List/Assessment/Plan Problem List/Assessment/Plan #1 ? copd with exacerbation: cont meds, add steroids #2 ?pneumonia: gram positive/neg: iv antibiotics, ct chest, vq scan #3 htn #4 h/o covid 19 #5 ckd stage 3: usg #6 morbid obesity #7 nicotine dependence: advised to quit, nicotine patch- time spent 11 mins #8 ? [facility] advance care planning- full code- time spent 19 mins Plan discussed with: Patient Date of Service: Sep 08, 2024 Billing Provider: GERALDO VIRAMONTES MD Common Visit Codes: [id number] INP/OBS CARE(HIGH) GERALDO VIRAMONTES MD Sep 08, 2024 11:15
[2024-09-08] MEDS: methylPREDNISolone SOD SUCC 40 MG/ML VL IV SCH (21:18)
[2024-09-08] MEDS: guaiFENesin-DM 100/10mg/5ml SYR PO PRN (21:24)
[2024-09-09] VITALS (14 sets, daily range): BP systolic 105–125; BP diastolic 49–74; PULSE 66–97; RESP 18–20; TEMP 97.5–98.4; O2SAT 91–98
[2024-09-09 06:13] LABS: Anion Gap 7 (5-15); Carbon Dioxide 24 mmol/L (20-31); Chloride 101 mmol/L (98-107)
[2024-09-09 06:19] LABS: Calcium 10.8 mg/dL (8.7-10.4); Glucose 142 mg/dL (74-106); Potassium 5.4 mmol/L (3.5-5.1); Sodium 132 mmol/L (136-145)
[2024-09-09 06:20] LABS: BUN/Creatinine Ratio 17.1 (10.0-20.0); Blood Urea Nitrogen 34 mg/dL (9-23)
[2024-09-09] MEDS ORDERED: PRED20TA2 PO (10:25)
[2024-09-09] MEDS ORDERED: AZITTAB2 PO (10:25)
[2024-09-09] MEDS ORDERED: AMLO1TAB23 PO (10:25)
[2024-09-09] MEDS ORDERED: ALBUAER3 IN (10:25)
--- NOTE | 2024-09-09 10:37 | DVHDS ---
DATE OF DISCHARGE: 09/09/2024 HISTORY OF PRESENT ILLNESS: The patient is a 59-year-old gentleman who was admitted with history of increasing shortness of breath and cough and has history of COVID, hypertension and tobacco abuse. HOSPITAL COURSE: The patient had a CT of the chest that showed mild diffuse interlobular septal thickening. The patient had evidence of chronic kidney disease. He had a V/Q scan that was low probability. A renal ultrasound that was normal. The patient's Doppler of lower extremities was also negative for DVT. The patient's blood cultures were negative. He is now improved in the symptoms. A repeat potassium will be obtained prior to discharge. The patient will resume his home medications at discharge except for lisinopril. The patient will now be placed on Norvasc 10 mg daily along with prednisone 20 mg in the morning for 5 days, Zithromax 500 mg daily for 3 days and albuterol MDI p.r.n. We will follow up with his primary in 1 week. His echocardiogram showed ejection fraction of 60%. FINAL DIAGNOSES: Therefore, * Likely chronic obstructive pulmonary disease with exacerbation. * Questionable pneumonia, gram-positive, gram-negative. * Hypertension. * History of COVID-19. * Chronic kidney disease, stage III. * Morbid obesity. * Tobacco abuse. * Likely obstructive sleep apnea. Time spent in discharge planning and review of plan with the patient and nursing was 39 minutes. MD CRISTIANO Grace/PASCUAL TID: [id number] RECEIPT: [id number]
[2024-09-09] MEDS: SODIUM ZIRCONIUM CYCL 10 GM PAK PO ONE ×2 (12:17→16:54)
[2024-09-10] VITALS (14 sets, daily range): BP systolic 102–121; BP diastolic 59–82; PULSE 61–74; RESP 18–20; TEMP 97.5–98.6; O2SAT 91–99
[2024-09-10] MEDS: SODIUM ZIRCONIUM CYCL 10 GM PAK PO ONE (01:01)
[2024-09-10 09:43] LABS: Anion Gap 7 (5-15); BUN/Creatinine Ratio 17.4 (10.0-20.0); Bilirubin, Total 0.6 mg/dL (0.2-1.0); Chloride 102 mmol/L (98-107); Glucose 98 mg/dL (74-106); Total Protein 8.2 g/dL (5.7-8.2)
[2024-09-10 09:45] LABS: Alanine Aminotransferase 86 U/L (7-40); Albumin 4.8 g/dL (3.2-4.8); Alkaline Phosphatase 118 U/L (46-116); Aspartate Aminotransferase 47 U/L (13-40); Blood Urea Nitrogen 35 mg/dL (9-23); Calcium 10.2 mg/dL (8.7-10.4); Carbon Dioxide 23 mmol/L (20-31); Sodium 132 mmol/L (136-145)
[2024-09-10] MEDS ORDERED: HYDR-4902 PO (14:03)
--- NOTE | 2024-09-10 14:09 | DVHPN2 ---
Subjective Reports left rib pain Reviewed: Care Plan, H&P, Labs, Medications Changes from previous H/P or p: No Changes General: Per HPI Eyes: No Pain, No Vision change, No Conjunctivae inflammation, No Eyelid inflammation, No Other, No Redness ENT: No Ear pain, No Ear discharge, No Nose pain, No Nose discharge, No Nose congestion, No Mouth pain, No Mouth swelling, No Throat pain, No Throat swelling, No Other Cardiovascular: Chest Pain; No Palpitations, No Orthopnea, No Paroxysmal Noc. Dyspnea, No Edema, No Lt Headedness, No Other Respiratory: Cough; No Dry; Shortness of breath; No SOB with excertion, No Wheezing, No Hemoptysis, No Pleuritic Pain, No Sputum, No Other Gastrointestinal: No Nausea, No Vomiting, No Abdominal Pain, No Diarrhea, No Constipation, No Melena, No Hematochezia, No Other Genitourinary: No Dysuria, No Frequency, No Incontinence, No Hematuria, No Retention, No Other Musculoskeletal: No other, No neck pain, No shoulder pain, No arm pain, No back pain, No hand pain, No leg pain, No foot pain Skin: No Rash, No Lesions, No Jaundice, No Bruising, No Other Objective Vitals Vital Signs Date Time Temp Pulse Resp B/P (MAP) Pulse Ox O2 Delivery O2 Flow Rate FiO2 09/10/24 13:00 98.6 70 20 102/82 (89) 94 98.6 09/10/24 11:51 Room Air 0.0 09/10/24 11:51 21 Intake/Output Intake and Output 09/10/24 07:00 Intake Total 3950 ml Output Total 1000 ml Balance 2950 ml Intake Oral 3900 ml IV Total 50 ml Output Urine Total 1000 ml # Voids 4 General Appearance: Alert, Oriented X3, Cooperative, No acute distress, mild distress HEENT: Atraumatic, PERRLA Lungs: Clear to auscultation, Normal air movement Cardiovascular: Normal S1, Normal S2 Psych/Mental Status: Mental status NL, Mood NL Medications Current Medications Medications Dose Ordered Sig/Deonna Route Start Time Stop Time Status Last Admin Dose Admin Acetaminophen/ Hydrocodone Bitart 1 tab Q4HP PRN PO 09/05/24 16:15 09/10/24 03:18 1 TAB Ondansetron HCl 4 mg Q4HP PRN IV 09/05/24 16:15 Enoxaparin Sodium 40 mg DAILY SC 09/06/24 10:00 09/09/24 09:02 40 MG Acetaminophen 650 mg Q6HP PRN PO 09/05/24 16:15 09/09/24 20:27 650 MG Morphine Sulfate 2 mg Q4HPRN PRN IV 09/05/24 16:15 09/10/24 01:01 2 MG Nitroglycerin 0.4 mg Q5MINP PRN SL 09/05/24 16:15 Morphine Sulfate 2 mg Q30M PRN IV 09/05/24 16:15 Albuterol 2.5 mg Q4HPRN PRN NEB 09/05/24 16:15 Albuterol 2.5 mg Q6HR NEB 09/05/24 18:00 09/10/24 11:43 2.5 MG Ipratropium [place] 0.5 mg Q4HPRN PRN NEB 09/05/24 16:15 Ipratropium [place] 0.5 mg Q6HR NEB 09/05/24 18:00 09/10/24 11:43 0.5 MG Nicotine 1 patch DAILY TD 09/06/24 10:00 Ceftriaxone Sodium 50 ml @ 100 mls/hr DAILY@09 IV 09/06/24 09:00 09/10/24 09:05 100 MLS/HR Azithromycin 500 mg DAILY PO 09/08/24 10:00 09/10/24 09:07 500 MG Guaifenesin/ Dextromethorphan 10 ml Q4HP PRN PO 09/07/24 11:15 09/09/24 20:22 10 ML Methylprednisolone Sodium Succinate 20 mg BID IV 09/08/24 22:00 09/10/24 09:07 20 MG Laboratory Results Laboratory Tests 09/07/24 06:40 09/10/24 08:31 Chemistry Test 09/10/24 08:31 Albumin 4.8 g/dL (3.2-4.8) Calcium Level 10.2 mg/dL (8.7-10.4) Total Protein 8.2 g/dL (5.7-8.2) LFT Test 09/10/24 08:31 Alanine Aminotransferase (ALT) 86 U/L (7-40) H Alkaline Phosphatase 118 U/L (46-116) H Aspartate Amino Transferase (AST) 47 U/L (13-40) H Total Bilirubin 0.6 mg/dL (0.2-1.0) Microbiology Microbiology Date/Time Source Procedure Growth Status 09/05/24 17:17 Blood Blood Culture - Preliminary NO GROWTH AFTER 72 HOURS OF INCUBATION. Resulted Labs and/or images reviewed: Labs reviewed by me, Image(s) reviewed by me Assessment/Plan Assessment/Plan Impression: -COPD with exacerbation -questionable pneumonia, Gram-positive/Gram-negative etiology -primary hypertension -history of COVID-19 -CKD stage 3 B with hyperkalemia -nicotine dependence -probable osteoarthritis Plan: -patient was discharged yesterday, held given hyperkalemia which was attributed to BERNADETTE inhibitor in the setting of chronic kidney disease. Today's potassium is now 5.0. Patient states that his respiratory status has improved. Patient will be discharged home. -continue discharge medications per primary hospitalist that was provided yesterday. Add [place] 5/325 for persistent left rib pain. Discussed with the patient that it was attributed to coughing, musculoskeletal in nature. Total time spent with patient discussing and formulating plan of care: 35 minutes. This medical document was created using an electronic medical record system with [employer] dictation system. Although this document has been carefully reviewed, there may still be some phonetic and typographical errors. These areas are purely typographical due to imperfections of the software programs, and do not reflect any compromise in the patient's medical care. Plan discussed with: Patient, Other (RN) My Orders Orders - STONEY ELISE NP Procedure Category Date Status Time Discharge DISCHARGE 09/10/24 Transmitted 14:00 Date of Service: Sep 10, 2024 Billing Provider: STONEY ELISE NP Common Visit Codes: [id number] INP/OBS CARE(HIGH) STONEY ELISE NP Sep 10, 2024 14:09
== END 2024-09-10 17:50 | disposition home or self-care (01) | DRG 178 ==
LOC: ER 08:45 → TELE 16:05 → TELE-WESTW 19:30 → WEST WING 09-08 17:04
PROVIDERS: ADMIT Internal Medicine; ATTEND Internal Medicine
DX: J15.69 Pneumonia due to other Gram-negative bacteria (principal); J44.0 Chronic obstructive pulmonary disease with (acute) lower respiratory infection; J44.1 Chronic obstructive pulmonary disease with (acute) exacerbation; N17.9 Acute kidney failure, unspecified; Z68.43 Body mass index [BMI] 50.0-59.9, adult; Z20.822 Contact with and (suspected) exposure to COVID-19; I12.9 Hypertensive chronic kidney disease with stage 1 through stage 4 chronic kidney disease, or unspecified chronic kidney disease; E66.01 Morbid (severe) obesity due to excess calories; F17.200 Nicotine dependence, unspecified, uncomplicated; N18.32 Chronic kidney disease, stage 3b; E87.5 Hyperkalemia; J15.9 Unspecified bacterial pneumonia; Z87.442 Personal history of urinary calculi; Z71.6 Tobacco abuse counseling; Z79.899 Other long term (current) drug therapy
CPT/HCPCS: 36415; 71045; 71250; 76775; 78582; 80048; 80053; 84132; 84484; 85025; 85379; 86803; 87040; 87340; 87426; 87804; 93005; 93306; 93970; 94640; 99291; G0378; J1885